=== PATIENT | female | born 1995 ===

== ENCOUNTER 2024-11-19 12:59 | Outpatient (AMB) | payer OTHER, SELFPAY ==
--- NOTE | 2024-11-19 13:09 | HO.SPINEOV ---
Intake Visit Reasons: LBP/herniated disc Intake Note: Ms. Galvan is here today c/o low back pain. MRI done @ [facility] (brought disc) Gate Supervisor Required: No Assessment & Plan Assessment & Plan (1) Lumbar disc herniation with radiculopathy: Code(s): M51.16 - Intervertebral disc disorders with radiculopathy, lumbar region Category: Medical Plan Dear colleague Thank you for referring Shakila Galvan to the office today with a chief complaint of severe right leg pain. HPI: This 29-year-old female has a history of a trauma 11 years ago where she landed on her spine. She suffering from severe low back pain radiating down both legs. Over time the symptoms improved but never went away completely. She always suffered from low back pain. Five months ago she suddenly developed severe radiating pain down the back of her leg into her calf. The pain is varying from 3 to 8/10. The pain is worse at the end of the day and sudden movements give her severe shooting pain down her leg. She has been taking anti-inflammatory drugs for all this time. She is currently in physical therapy. She still works as a life science teacher. Otherwise, she has limited her daily activities due to the pain. ts PMH: Healthy Medications: None other than anti-inflammatories Allergies: Latex Social history: Nonsmoker Physical Exam: Pleasant female in obvious agony. She sits in a deviated position towards the left side. She stands in a deviated position towards the left side. Straight leg raise is positive at 15 degrees with severe pain shooting down her right leg in an S1 distribution. Ankle reflexes absent on the right side. Sensory and motor exam are intact. Radiological Studies: MRI done at [facility] on 11/07/2024 shows lumbar degenerative disc disease L5-S1 with a large extruded disc herniation L5-S1 on the right side compressing the S1 nerve root Impression/Plan: This 29-year-old female is suffering from a classic S1 radiculopathy due to a large extruded disc herniation L5-S1 compressing the right S1 nerve root. Symptoms have been going on for 5 months without improvement. I recommended an L5-S1 microdiskectomy to decompress the right S1 nerve roots to address the pain. I quoted 85-90% success rate. She never had surgery before and therefore she wants to process my advice and will call my office if she wants to proceed. Thank you for allowing me to participate in your patients care. total time spent was 50 minutes in counseling ,coordination of plan, personal review of imaging, surgical decision making and subsequent plan Zion Onofre MD, PhD Spine Fellowship Trained Neurosurgeon Director, [facility] Coding Level of Care Code New Pt Level 4 (73361) Diagnoses Lumbar disc herniation with radiculopathy M51.16
== END 2024-11-19 13:35 | disposition home or self-care (01) ==
LOC: HO.HNS 12:59
PROVIDERS: PCP Nurse Practitioner Family; Visit Provider Neurological Surgery
DX: M51.16 Intervertebral disc disorders with radiculopathy, lumbar region (principal)
CPT/HCPCS: 99204

== ENCOUNTER → 2024-11-19 12:59 | Outpatient (BNVA) | payer OTHER, SELFPAY | PROVIDERS: PCP Nurse Practitioner Family; Visit Provider Neurological Surgery | DX: M51.16 Intervertebral disc disorders with radiculopathy, lumbar region (principal) | CPT/HCPCS: 99202 ==

== ENCOUNTER 2025-04-26 10:35 | Day surgery (SDC) | payer OTHER, SELFPAY ==
--- OUTSIDE RECORDS SUMMARY | 2025-03-31 13:12 | XMS_ITS | Clinical Summary ---
Author Organization [facility] Address [address] [place] [address] Care Team Providers Care Wild Life Photographer Name Role Phone Pcp, No Primary Care Provider Unavailabl e Allergies Active Allergy Reactions Criticality Noted Date Comments Latex Unknown/Patient and Family Unable to Define Medium 08/06/2018 Medications naproxen (NAPROSYN) 500 MG tablet Take 500 mg by mouth 2 (two) times a day with meals. Take with meals or food to reduce stomach upset. Active albuterol (PROVENTIL HFA; VENTOLIN HFA) 108 (90 Base) MCG/ACT inhaler Inhale 2 puffs 4 times daily (every 6 hours) as needed for wheezing. Active SUMAtriptan (IMITREX) 20 MG/ACT nasal sprayIndications :Migraine with aura and with status migrainosus, not intractable 1 spray (20 mg total) into each nostril every 2 (two) hours as needed for migraine. May repeat in 2 hours if unresolved. Do not exceed 200 mg in 24 hours. 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 04/25/2007 Overview (08/30/2018): Overview: DELAYED SPEECH ACQUISITION -IMPROVED WITH EI Asthma 04/21/2006 Family History Medical History Relation Name Comments Arthritis Father Hypertension Father Substance Abuse Maternal Grandfather Asthma Maternal Grandmother Anxiety disorder Mother Arthritis Mother Autoimmune disease Mother Depression Mother Hypertension Mother Melanoma Paternal Aunt Breast cancer Paternal Grandmother Lung cancer Paternal Grandmother Relation Name Status Comments Father Maternal Grandfather Maternal Grandmother Mother Paternal Aunt Paternal Grandmother Social History Tobacco Use Types Packs/Day Years Used Date Smoking Tobacco: Never Smokeless Tobacco: Never Alcohol Use Standard Drinks/Week Comments No 0 (1 standard drink = 0.6 oz pur e alcohol) AUDIT-C Answer Date Recorded Frequency of Alcohol Consumption Never 08/06/2018 Average Number of Drinks Not on file 018 Frequency of Binge Drinking Not on file 07/25 Comments No Sex and Gender Information Value Date Recorded Sex Assigned at Not on file Legal Sex Female 12:58 PM EST Gender Identity Not on file Sexual Orientation Not on file Last Filed Vital Signs Vital Sign Reading Time Taken Comments Blood Pressure 138/102 11/05/2018 3:45 PM EDT Pulse 123 11/05/2018 3:45 PM EDT Temperature 37.4 C (99.4 F) 08/28/2018 1:06 PM EST Respiratory Rate 16 08/28/2018 1:06 PM EST Oxygen Saturation 98% 11/05/2018 3:45 PM EDT Inhaled Oxygen Concentration - - Weight 81.2 kg (179 lb) 11/05/2018 3:45 PM EDT Height 172.7 cm (5' 8 ) 11/05/2018 3:45 PM EDT Body Mass Index 27.22 11/05/2018 3:45 PM EDT Plan of Treatment Health Maintenance Due Date Last Done Comments Hepatitis C Virus Screening 1995 HIV Screening 2009 DTaP/Tdap/Td Vaccines (1 - Tdap) 2015 Hepatitis B Vaccines (1 of 3 - 19+ 3-dose series) 2015 Pneumococcal Vaccine: Pediat jarred (0-5 Years) and At-Risk Patients (6 to 49 Years) (1 of 2 - PCV) 2015 Pap Smear (Ages 21-65) 2017 COVID-19 Vaccine ( - 2023-2 5 season) 2024 Influenza Vaccine 03/25/2025 HPV Vaccines Aged Out No longer eligi ble based on patient's age to complete this topic Insurance * Guarantor: Shakila Galvan Account Type Relation to Patient Date of Phone Billing Address Personal/Family Self 1995 [address] [address] [facility] [employer] Member Subscriber Plan / Payer (Ef fective 2008-Present) Name:Shakila Galvan Relation to Subscriber:Self Name:Shakila Galvan Payer ID:Not on file Type:Not on file Address: [address] - [facility] [place] Sub[place] Plan / Payer (Ef fective 2017-Present) Name:Shakila Galvan Relation to Subscriber:Child Name:JAEL LANDIN Date of :1971 (Home) Address: [address] [place] [address] Payer ID:[id number] (NAIC) Type:Not on file Address: [facility] [address] [place] [address] Care Teams Wild Life Photographer Relationship Specialty Start Date End Date Pcp, No PCP - General General Medicine 07/20/19
--- OUTSIDE RECORDS SUMMARY | 2025-03-31 13:12 | XMS_ITS ---
[facility] Care Team Organization Name Specialty Phone Email Start Date End Da te [facility] TEODORO PHAN Primary Care 07/02/2022 04/12/2024
--- OUTSIDE RECORDS SUMMARY | 2025-03-31 13:12 | XMS_ITS | Clinical Summary ---
Author Organization [address] Address [address] [place] [address] Phone Care Team Providers Care Search Analyst Name Role Phone Referring, No Primary Care Provider Unavailabl e Allergies Active Allergy Reactions Criticality Noted Date Comments Latex 05/02/2018 Medications ondansetron (ZOFRAN-ODT) 4 MG disintegrating tablet Take 1 tablet (4 mg total) by mouth every 8 (eight) hours as needed for Nausea.. 20 tablet 8 Active ondansetron (ZOFRAN) 4 MG tablet Take 1 tablet (4 mg total) by mouth every 6 (six) hours 12 tablet 9 Active Social History Tobacco Use Types Packs/Day Years Used Date Smoking Tobacco: Never Smokeless Tobacco: Never Alcohol Use Standard Drinks/Week Comments Yes 0 (1 standard drink = 0.6 oz pur e alcohol) rarely drinks Comments No Sex and Gender Information Value Date Recorded Sex Assigned at Not on file Legal Sex Female 8:57 AM EDT Gender Identity Not on file Sexual Orientation Not on file Last Filed Vital Signs Vital Sign Reading Time Taken Comments Blood Pressure 139/84 10/10/2018 9:30 PM EST Pulse 109 10/10/2018 7:08 PM EST Temperature 36.9 C (98.4 F) 10/10/2018 7:08 PM EST Respiratory Rate 16 10/10/2018 9:30 PM EST Oxygen Saturation 100% 10/10/2018 9:30 PM EST Inhaled Oxygen Concentration - - Weight 68 kg (150 lb) 10/10/2018 7:04 PM EST Height 172.7 cm (5' 8 ) 10/10/2018 7:04 PM EST Body Mass Index 22.81 10/10/2018 7:04 PM EST Plan of Treatment Health Maintenance Due Date Last Done Comments HIV screening 2009 Hepatitis C screening 2014 Cervical cancer screening 2017 Tetanus adult (Td q 10,TDAP once) 09/16/2017 09/16/2007, 10/12/2001, 03/06/1998, Additional history exists Covid-19 vaccine series ( - 2023- season) 2024 Influenza vaccine 04/25/2025 07/08/2016, , 06/06/2007, Additional history exists RSV Immunization (1 - 1-dose 75+ series) 2071 Meningococcal Vaccine Completed 04/09/2013, 008 Pneumococcal Vaccine (2 - 49 years) Aged Out No longer eligible based on patient's age to complete this topic Insurance [employer] Care Teams Search Analyst Relationship Specialty Start Date End Date Referring, No PCP - General 05/02/18
[2025-04-04 10:04] VITALS: BMI 20.5
[2025-04-04 12:01] VITALS: BP 114/72; PULSE 68; RESP 16; O2SAT 99
[2025-04-26] VITALS (11 sets, daily range): BP systolic 88–131; BP diastolic 40–79; PULSE 56–85; RESP 12–20; TEMP 36.4–36.9; O2SAT 95–100; BMI 21.2
--- NOTE | ~2025-04-26 | FL_ITS ---
EXAMINATION: XR FLUOROSCOPY WITH IMAGES CLINICAL INFORMATION: L5-S1 microdiscectomy COMPARISON: None available. TECHNIQUE: Fluoroscopy provided to: Dr. Onofre Fluoroscopy time: 55 seconds DAP: 0.6169 Gycm2 Images: 1 FINDINGS: 1 fluoroscopic spot image taken during L5-S1 microdiscectomy. Please refer to the full operative report for details. FL/FL guidance in OR IMPRESSION: Fluoroscopic guidance. Electronically signed by: Chacorta Prince MD 04/27/2025 08:49 AM EDT
[2025-04-26] MEDS: Lactated Ringers 1,000 ML 100 ML IVCONT (10:50)
[2025-04-26 10:53] LABS: UPreg QC Valid YES
--- NOTE | 2025-04-26 11:47 | P.HPSUR_ITS ---
Pre-Procedural Eval Section A - 24 Hr Update-Section A only Date of Service: 04/26/25 The patient is an INPATIENT: No Changes since office visit: No Cold of Flu in the past 2 weeks, No New Medical Problems, No Changes in Medication and No Patient answered all questions The patient has been examined within 24 hours of the surgical procedure. The History & Physical has been completed within 30 days and I have reviewed it.: No Section B - Complete if H&P > 30 days Chief Complaint: Intervertebral disc disorders with radiculopathy, Allergies: Allergies Allergy/AdvReac Type Severity Reaction Status Date / Time latex Allergy Intermediate Rash Verified 04/04/25 11:55 Review of Systems Sugical H&P ROS: Negative: Constitution, Cardiovascular, Respiratory, Neurological, Psychiatric, Hem-Onc, Allergic/Immunologic, Gastrointestinal, Genitourinary, Musculoskeletal, Integumentary, Endocrine and Eyes/Ears/Nose/T hroat Exam Surgical H&P Exam: Normal: HEENT, Normal: Heart, Normal: Lungs, Normal: Extremities, Normal: Abdomen, Normal: Skin and Normal: Neurological (awake,.alert,oriented x 3 ) Plan Diagnosis/Plan: Unchanged right L5-S1 microdiskectomy Time Spent With Patient Time: Total time managing care of this patient today _6___ minutes.
--- NOTE | 2025-04-26 11:47 | PM.DS ---
DS: Providers Provider Date of Service: 04/26/25 Date of discharge: 04/26/25 Primary care physician: Charity Ordaz NP Admitting clinician: Zion Onofre DS: Diagnosis Discharge Diagnosis (1) Lumbar disc herniation with radiculopathy: Status: Acute DS: Summary Time Attestation Discharge Coordination Time (in mins): 5 Quality: Safe Use of Opioids Does Pt have an Active Cancer Diagnosis on the Problem List?: No Quality: Stroke Does the patient have a stroke diagnosis?: No Physical Exam Vital Signs: Vital Signs: Last Vital Signs Temp 98.5 F 04/26/25 11:15 Pulse 84 04/26/25 11:15 Resp 20 04/26/25 11:15 BP 116/76 04/26/25 11:15 Pulse Ox 97 04/26/25 11:15 O2 Del Method Room Air 04/26/25 11:15 BMI result Body Mass Index 21.2 DS: Data Data Completed and Pending Labs on day of discharge: Laboratory Results - last 24 hr 04/26/25 10:47 Urine Test NEGATIVE Discharge Plan Discharge Patient Disposition: Home, Self-Care Referrals: Charity Ordaz NP [Primary Care Provider, Family Practice] - 1 Week Discharge Medications: New docusate sodium [Colace] 100 mg capsule 100 mg PO BID Qty: 20 0RF oxycodone 5 mg tablet 5 mg PO Q4H PRN (Reason: pain) Qty: 20 0RF Rx Instructions: Partial Fill upon patient request. Continued acetaminophen 500 mg Tablet 1,000 mg PO Q6H PRN (Reason: Pain) albuterol sulfate 90 mcg/actuation Hfa Aerosol Inhaler 2 puff INHALATION Q4-6H PRN (Reason: Shortness Of Breath Or Wheezing) vitamin K2 100 mcg Capsule 100 mcg PO DAILY cholecalciferol (vitamin D3) [Vitamin D3] 10 mcg (400 unit) Tablet 10 mcg PO DAILY Discharge Orders: Discharge Order (Routine); Ordered 04/26/25 Ordered By: Shayan Marinelli Diet: Advance to usual diet Activity on Discharge: As tolerated Activity Restrictions/Additional Instructions: After your spinal surgery we ask you to observe the following restrictions/guidelines: Activity: It is normal to feel some discomfort as you increase your activity, but that will improve with time. We ask you avoid heavy lifting or acitivities that cause pain. As a general rule, 8lbs is a safe limit for lifting right after surgery. Walk as much as you feel comfortable but not to exhaustion. You will feel extra tired the first few days after surgery. Stay well hydrated. It is OK to walk up and down stairs You may return to driving when you are off narcotics (such as vicodin, oxycodone, dilaudid, etc), and you are back to normal functional capacity. If you have any concerns please check with office before driving. Return to work is specific to each patient and each surgery, so please speak with your doctor/PA at first follow up. Please bring paperwork such as FMLA at that time if you need it filled out. Medications: For optimum pain control, it is best to start with a combination of 500 mg of Tylenol every 4 hours with 600 mg of Motrin every 8 hours, and use narcotics as needed in between for breakthrough pain. We will give you a short supply of narcotics after surgery (usually one weeks worth). If you need more please call the office but do not use more than prescribed. You will need to give our office 48 hours notice if you need narcotics refilled and we do not fill narcotics on weekends or evenings. If you are on a narcotic, it is a good idea to take a stool softener such as colace or senna to avoid constipation If you take blood thinner such as aspirin, Plavix, Coumadin, Effient, Eliquis etc for conditions such as Afib, DVT, Pulmonary embolus, coronary disease, stents etc please speak with your surgeon about specific details as to when you can resume these medications. Follow up: Please call the office, , after surgery to arrange a 3 week follow up for wound check. Wound Care: You may remove your dressing on the first day after surgery. ?You may ?leave open to air. Please do not remove the steri strips underneath. they will fall off on their own in one week. IT IS NORMAL FOR THE WOUND TO OOZE OR BE BLOODY FOR A FEW DAYS AFTER SURGERY. ?IF THIS HAPPENS JUST PLACE NEW DRESSING OVER IT TO AVOID STAINING CLOTHES. You may shower on post op day # 1 We ask that you do not let the water soak the wound. If it does get wet, just towel dry lightly. Please do not scrub your incision or place any type of chemical/ointment on the wound. No tub baths, pools or jacuzzis for one month. If you have any leaking or redness from your wound, or fevers, please call office Print Language: Albanian
--- NOTE | 2025-04-26 12:04 | HO.ANESPROP2 ---
Documented by User: Arminda Carr NP 04/19/25 13:47 HPI - Anesthesia Eval Consult details Narrative: 29yo F for L5-S1 MicroLumbar discectomy, 04/26/25 No recent illness No CP/SOB with walking and PT Asthma: well controlled albuterol only when sick, last used ~ 1 year ago Pt highly anxious - has never rec'd anesthesia before. Time spent reviewing DOS expectations, low risk for complications. Questions answered and reassured. PMFSH Active Problems Active Problems: All Active Problems Lumbar disc herniation with radiculopathy (Acute) Past Medical History Medical History (Updated 04/05/25 @ 14:32 by Prema Trujillo, HUNG) PTSD (post-traumatic stress disorder) History of nausea Hx: bad fall (~2014) Back pain Anxiety Migraines Asthma Irregular heart beat Family History Family history of problems with anesthesia: No Surgical History Surgical History (Updated 04/26/25 @ 11:20 by Yoly Vann RN) H/O discectomy No pertinent past surgical history History of Problems with Anesthesia: No Social History Social History (Updated 04/04/25 @ 10:07 by Prema Trujillo RN) Household Members Other:: mother Housing: House Are you a primary long term care social worker to a significant other at home: No Do you presently have visiting nurse or other home services: No Patient Tobacco Use Status: Never used Tobacco Use of substances other than those prescribed or required for medical reasons: No Have you been hit, kicked, punched, or otherwise hurt by someone within the past year? If so, by whom?: No Are you DNR?: No Advance Directives: No Advance Directives Information Provided: Yes Advance Directives on File: No Patient : No FDLMP: 04/04/2025 : No Poor oral hygiene: No Meds Allergies Allergy/AdvReac Type Severity Reaction Status Date / Time latex Allergy Intermediate Rash Verified 04/04/25 11:55 Home Medications ?Medication ?Instructions ?Recorded ?Confirmed ?Last Taken ?Type acetaminophen 500 mg tablet 1,000 mg PO Q6H PRN Pain 04/04/25 04/04/25 04/12/25 History albuterol sulfate 90 mcg/actuation 2 puff inhalation Q4-6H PRN 04/04/25 04/04/25 04/26/24 History aerosol inhaler Shortness Of Breath Or Wheezing cholecalciferol (vitamin D3) 10 10 mcg PO DAILY 04/26/25 04/26/25 03/28/25 History mcg (400 unit) tablet (Vitamin D3) vitamin K2 100 mcg capsule 100 mcg PO DAILY 04/26/25 04/26/25 03/28/25 History Exam Height,Weight and Vital Signs: Height 5 ft 8 in Weight 61.235 kg Last Vital Signs Pulse 68 04/04/25 12:01 Resp 16 04/04/25 12:01 BP 114/72 04/04/25 12:01 Pulse Ox 99 04/04/25 12:01 O2 Del Method Room Air 04/04/25 12:01 Airway Mallampati Class: I TM Dist: >3cm Neck ROM: Full Loose/Missing/Broken Teeth: No (permanent retainer lower front) Heart: RRR Lungs: CTAB Assessment and Plan Assessment Anesthesia Assessment: Anesthesia Plan Discussed and PAT Visit Final Anesthetic Review Family History of Problems with Anesthesia: No History of Problems with Anesthesia: No Documented by User: Harleen Soria DO 04/26/25 12:06 [facility] Past Medical History Medical History (Updated 04/05/25 @ 14:32 by Prema Trujillo, HUNG) PTSD (post-traumatic stress disorder) History of nausea Hx: bad fall (~2014) Back pain Anxiety Migraines Asthma Irregular heart beat Family History Family history of problems with anesthesia: No Surgical History Surgical History (Updated 04/26/25 @ 11:20 by Yoly Vann RN) H/O discectomy No pertinent past surgical history History of Problems with Anesthesia: No Social History Social History (Updated 04/04/25 @ 10:07 by Prema Trujillo, HUNG) Household Members Other:: mother Housing: House Are you a primary long term care social worker to a significant other at home: No Do you presently have visiting nurse or other home services: No Patient Tobacco Use Status: Never used Tobacco Use of substances other than those prescribed or required for medical reasons: No Have you been hit, kicked, punched, or otherwise hurt by someone within the past year? If so, by whom?: No Are you DNR?: No Advance Directives: No Advance Directives Information Provided: Yes Advance Directives on File: No Patient : No FDLMP: 04/04/2025 : No Poor oral hygiene: No Meds Allergies Allergy/AdvReac Type Severity Reaction Status Date / Time latex Allergy Intermediate Rash Verified 04/04/25 11:55 Home Medications ?Medication ?Instructions ?Recorded ?Confirmed ?Last Taken ?Type acetaminophen 500 mg tablet 1,000 mg PO Q6H PRN Pain 04/04/25 04/04/25 04/12/25 History albuterol sulfate 90 mcg/actuation 2 puff inhalation Q4-6H PRN 04/04/25 04/04/25 04/26/24 History aerosol inhaler Shortness Of Breath Or Wheezing cholecalciferol (vitamin D3) 10 10 mcg PO DAILY 04/26/25 04/26/25 03/28/25 History mcg (400 unit) tablet (Vitamin D3) vitamin K2 100 mcg capsule 100 mcg PO DAILY 04/26/25 04/26/25 03/28/25 History Exam Exam Date and Time: 04/26/25 1200 Height,Weight and Vital Signs: Height 5 ft 8 in Weight 61.235 kg Last Vital Signs Pulse 68 04/04/25 12:01 Resp 16 04/04/25 12:01 BP 114/72 04/04/25 12:01 Pulse Ox 99 04/04/25 12:01 O2 Del Method Room Air 04/04/25 12:01 Vital Signs Pulse Rate 68 04/04/25 12:01 Respiratory Rate 16 04/04/25 12:01 Blood Pressure 114/72 04/04/25 12:01 Pulse Oximetry 99 04/04/25 12:01 Oxygen Delivery Method Room Air 04/04/25 12:01 Temperature 98.5 F 04/26/25 11:15 Pulse Rate 84 04/26/25 11:15 Respiratory Rate 20 04/26/25 11:15 Blood Pressure 116/76 04/26/25 11:15 Pulse Oximetry 97 04/26/25 11:15 Oxygen Delivery Method Room Air 04/26/25 11:15 Airway Mallampati Class: I TM Dist: >3cm Neck ROM: Full Loose/Missing/Broken Teeth: No (permanent retainer lower front) Heart: S1S2 Assessment and Plan Assessment Anesthesia Assessment: Anesthesia Plan Discussed and Chart Reviewed Final Anesthetic Review Family History of Problems with Anesthesia: No History of Problems with Anesthesia: No NPO: Yes ASA Class: II Final Preanesthetic Review: No Changes in Pt Med Stat, Meds/Allgs Chart Reviewed, Consent Obtained/Reviewed and Anes Risks/Benef Reviewed Patient Risk: Low Procedure Risk: Low Anesthetic Plan Anesthetic Plan: GA and Agree w/ Assess. and Plan Disposition: Standard PACU
--- NOTE | 2025-04-26 13:24 | W.PM.OPN ---
Operative Note Operative Note Date of Service: 04/26/25 Narrative: Preoperative diagnosis: Right S1 radiculopathy due to disc herniation Postoperative diagnosis: Same Procedure: Right L5-S1 microdiskectomy with microscope Surgeon: Zion Onofre MD, PhD Platform Worker: mayra Burnett This 29-year-old female is suffering from a right S1 radiculopathy due to a large disc herniation L5-S1 compressing the right S1 nerve root. The patient was offered a lumbar microdiskectomy to decompress the nerve root. The procedure complications were explained. The patient was consented. The patient was brought to the operating room and endotracheally intubated. The patient was turned in a prone position on the José Luis frame. Prepping and draping was done followed by time-out. A mid lumbar incision was made followed by release of the paravertebral muscles on the right side to expose the L5-S1 interspace. An intraoperative x-rays obtained to confirm the correct level. The microscope was brought in. A L5 laminotomy was done followed by opening of the flavum ligament. The S1 nerve root was identified and retracted medially to expose the L5-S1 disc space. I could palpate a disc herniation medial from the S1 nerve root, which I carefully removed with a pituitary. Large fragments of disc herniation were removed medial from the S1 nerve root. The disc space was inspected and any residual disc fragments were removed. This resulted in an excellent decompression of the S1 nerve root. Hemostasis was done. The microscope was removed. Marcaine was injected intramuscularly.The incision was closed in two layers. Steri-Strips used to approximate the incision. An op-site were taken there was used to cover the incision. All sponge and needle counts were correct. Patient was extubated and transported in stable condition to recovery room. this procedure was done with the aid of a physician certified pharmacist assistant who performed the initial exposure until the microscope was brought in and performed the closure of the incision. Anesthesia: General Blood loss: 10 mL Complications: None Specimen: None Surgical time: 45 minutes Disposition: Discharge home
== END 2025-04-26 16:05 | disposition home or self-care (01) ==
PROVIDERS: Nurse Practitioner; PCP Nurse Practitioner Family; Visit Provider Neurological Surgery
PROC: (CPT 63030; principal; 2025-04-26 13:10)
DX: M51.16 Intervertebral disc disorders with radiculopathy, lumbar region (principal); M54.50 Low back pain, unspecified; Z87.828 Personal history of other (healed) physical injury and trauma; Z91.81 History of falling; J45.909 Unspecified asthma, uncomplicated; Z79.1 Long term (current) use of non-steroidal anti-inflammatories (NSAID); Z79.899 Other long term (current) drug therapy; Z91.040 Latex allergy status
CPT/HCPCS: 63030; 81025; J0131; J0690; J1100; J1171; J1630; J1885; J2003; J2250; J2405; J2704; J3010

== ENCOUNTER → 2025-04-26 10:35 | Outpatient (BNV) | payer OTHER, SELFPAY | PROVIDERS: PCP Nurse Practitioner Family; Visit Provider Neurological Surgery | DX: M51.16 Intervertebral disc disorders with radiculopathy, lumbar region (principal) | CPT/HCPCS: 63030; 99499 ==

== ENCOUNTER 2025-05-17 13:26 | Outpatient (AMB) | payer OTHER, SELFPAY ==
--- OUTSIDE RECORDS SUMMARY | 2024-10-29 05:10 | XMS_ITS ---
Author Organization [facility] Address [address] [place] [address] Care Team Providers Care Starch And Prosize Mixer Name Role Phone MIKE REAVES Unavailable [phone] REASON FOR VISIT ULTRA -PELVIC PAIN Encounters Encounter Location Date Provider Diagnosis [facility] [address] [place] [address] 10/29/2024 MIKE REAVES Plan Of Treatment Next Appt Details Provider Name:MIKE Hinojosa, 06/17/2025 10:30:00 AM, [address] [place] [address], [address], [place], [address], Progress Notes * OZ ESPINOSAOB: [birth year] (29 yo F)Acc No.[id number]:10/29/2024 PROGRESS NOTES Patient: LENA NGO Provider: Fabián REAVES MD :1995 A ge:29 Y S ex:Female Date:10/29/2024 Address:[address] [place], [place] [id number] Subjective: * Chief Complaints: * 1 . ULTRA -PELVIC PAIN. * Medical History: Objective: * Vitals: Assessment: Plan: * Treatment: * Images: Billing Information: * Visit Code: * Procedure Codes: * Electronic signature of MIKE REAVES MD on 05/17/2025 at 04:30 PM EDT Sign off status: Pending * Provider: Fabián REAVES MD Date: 0 10/29/2024 Generated for Printi ng/Fadusting/eTransmitting on: 0 05/17/2025 04:30 PM EDT
--- NOTE | 2025-05-17 13:28 | HO.SPINEOV ---
Intake Visit Reasons: 1st post op Intake Note: Ms. Galvan is here today for her 1st post op. Pin Ticket Machine Operator Required: No Allergies latex Allergy (Intermediate, Verified 05/17/25 13:28) Rash Assessment & Plan Assessment & Plan (1) S/P lumbar microdiscectomy: Code(s): Z98.890 - Other specified postprocedural states Category: Surgical Plan Procedure: Right L5-S1 microdiskectomy Shakila is a pleasant 29-year-old female comes in today for 1st postoperative visit after having a right-sided L5-S1 microdiskectomy completed by Dr. Onofre a few weeks ago. She reports that overall she has done very well since her surgery. For about 1 week after surgery she had 0 pain. Unfortunately about a week and a half out from her surgery she began experiencing a low-grade recurrence of a similar shooting pain down her right lower extremity. She states it is about a 4/10, and does occasionally flare-up throughout the day. This is a much more manageable pain, however she is very concerned that it returned. We discussed how this is likely related to the postoperative healing course, and she may be suffering from some inflammation after surgery. It will likely resolve on its own as time progresses. No new neurological deficits. The patient ambulates well and rises from a seated position without difficulty. Her incision site was still covered with Steri-Strips, therefore I removed them. Her incision is well approximated, and well healing. I would like to follow up with Shakila again in 6 weeks for his 2nd postoperative visit. Amos Onofre MD,PhD [facility] Coding Level of Care Code Global (67135) Diagnoses S/P lumbar microdiscectomy Z98.890
--- OUTSIDE RECORDS SUMMARY | 2025-05-17 16:30 | XMS_ITS | Encounter Summary ---
Author Organization [facility] Address [address] [place] [address] Care Team Providers Care Primary Special Education Teacher Name Role Phone Marilynn Hodges MD Primary Care Provider [phone] Reason for Visit * Reason Onset Date Comments Sore Throat 11/19/2019 Encounter Details Date Type Department Care Team Description 11/19/2019 Telephone Adult Medicine - [place] [address] [place] [address] Marilynn Hodges MD [address] [place] [address] Sore Throat Social History Tobacco Use Types Packs/Day Years Used Date Smoking Tobacco: Never Smokeless Tobacco: Never Comments:MOM OUTSIDE Alcohol Use Standard Drinks/Week Comments No 0 (1 standard drink = 0.6 oz pur e alcohol) Sex Assigned at Date Recorded Not on file Job Start Date Occupation Industry Not on file Not on file Not on file documented as of this encounter Miscellaneous Notes * Telephone Encounter - Inessa Crowder L.P.N. - 11/19/2019 9:35 AM EDT Pt has a sore throat ,with large tonsils,white patches ,appt in ideal ,booked, * Telephone Encounter - Divina Cruz - 11/19/2019 8:40 AM EDT Symptoms patient is having: Mom calling (vr) stating child has sore throat with white spots, statesits very red and swollen. Sore throat for 5 days, and white spots appeared yesterday. Mom is tryingto not have child come in she has fibromyalgia and states she has a bad immune system and does not want her to have to come in if she does not have to For ALL patients calling to schedule any appointment (routine, sick visit, follow up, consult, etc.) in the outpatient setting please ask the following questions. ??? Do you have fever, cough or shortness of breath? NO ??? Have you had close contact with someone with Coronavirus in the last 14 days? NO ??? Have you traveled abroad? NO ??? Have you been to [place] or in contact with anyone who has recently been in [place]? NO If YES to either, send the call to triage and do not book If pain or injury related was it due to an accident at work or from a motor vehicle accident? If yes, gather 3rd green party insurance information Date of accident/Injury: How long has patient had these symptoms?: PCP: Harleen Hodges Payor: JABIER/Kianna FFS / Plan: HMO $30 [employer] [id number] / Product Type: HMO PRE-PAID documented in this encounter Plan of Treatment Not on file documented as of this encounter Visit Diagnoses Not on filedocumented in this encounter Care Teams Primary Special Education Teacher Relationship Specialty Start Date End Date Marilynn Hodges MD [address] [place] [address] PCP - General Internal Medicine 12/28/14 documented as of this encounter
--- OUTSIDE RECORDS SUMMARY | 2025-05-17 16:30 | XMS_ITS | Encounter Summary ---
Author Organization [facility] Address [address] [place] [address] Care Team Providers Care Hand Dry Cleaner Name Role Phone Rubina Mosquera MD Primary Care Provider Roxi Gonzalez MD Primary Care Prov ider Mary Baeza MD Primary Care Provider Glo Hodges Ch MD Primary Care Provider [phone] Reason for Visit * Reason Comments medication problems Encounter Details Date Type Department Care Team Description 07/28/2003 Telephone [facility] - [address] [phone] Haroldo Brewster MD medication problems Social History Tobacco Use Types Packs/Day Years Used Date Smoking Tobacco: Never Assessed Sex Assigned at Date Recorded Not on file Job Start Date Occupation Industry Not on file Not on file Not on file documented as of this encounter Miscellaneous Notes * Telephone Encounter - 07/28/2003 4:00 PM ESTmsg to Miguel jimenez * Telephone Encounter - 07/28/2003 8:51 AM ESTchart requested * Telephone Encounter - 07/28/2003 8:42 AM ESTCALL RECEIVED. Contact: [phone] mom would like to speak with dr brewster about putting child on singular tablets for her asthma. documented in this encounter Plan of Treatment Not on file documented as of this encounter Visit Diagnoses Not on filedocumented in this encounter Care Teams Hand Dry Cleaner Relationship Specialty Start Date End Date Rubina Mosquera MD PCP - General 12/17/1997 09/24/12 Roxi Radford MD [address] [place] [address] PCP - General Pediatrics 09/25/12 08/02/14 Mary Baeza MD [address] [place] [address] PCP - General Pediatrics 08/03/14 12/27/14 Marilynn Hodges MD [address] [place] [address] PCP - General Internal Medicine 12/28/14 documented as of this encounter
--- OUTSIDE RECORDS SUMMARY | 2025-05-17 16:30 | XMS_ITS | Encounter Summary ---
Author Organization [facility] Address [address] [place] [address] Care Team Providers Care Semiconductor Manufacturing Technician Name Role Phone Marilynn Hodges MD Primary Care Provider [phone] Encounter Details Date Type Department Care Team Description 01/30/2018 Sales Merchandising Specialist Report Medical Records [address] [place], [place] [id number] [place] [address] Social History Tobacco Use Types Packs/Day Years Used Date Smoking Tobacco: Never Smokeless Tobacco: Never Comments:MOM OUTSIDE Alcohol Use Standard Drinks/Week Comments No 0 (1 standard drink = 0.6 oz pur e alcohol) Sex Assigned at Date Recorded Not on file Job Start Date Occupation Industry Not on file Not on file Not on file documented as of this encounter Plan of Treatment Not on file documented as of this encounter Visit Diagnoses Not on filedocumented in this encounter Care Teams Semiconductor Manufacturing Technician Relationship Specialty Start Date End Date Marilynn Hodges MD [address] [place] [address] PCP - General Internal Medicine 12/28/14 documented as of this encounter
--- OUTSIDE RECORDS SUMMARY | 2025-05-17 16:30 | XMS_ITS | Encounter Summary ---
Author Organization [facility] Address [address] [place] [address] Care Team Providers Care Real Estate Photographer Name Role Phone Marilynn Hodges MD Primary Care Provider [phone] Encounter Details Date Type Department Care Team Description 02/01/2015 Hospital Medical Records [address] [place], [place] [id number] [place] [address] Social History Tobacco Use Types Packs/Day Years [...] on filedocumented in this encounter Care Teams Real Estate Photographer Relationship Specialty Start Date End Date Marilynn Hodges MD [address] [place] [address] PCP - General Internal Medicine 12/28/14 documented as of this encounter
--- OUTSIDE RECORDS SUMMARY | 2025-05-17 16:30 | XMS_ITS | Encounter Summary ---
Author Organization [facility] Address [address] [place] [address] Care Team Providers Care Personnel Assistant Name Role Phone Marilynn Hodges MD Primary Care Provider [phone] Reason for Visit * Reason Onset Date Comments Brush Painter Feedback 06/22/2021 CORTEZ SERNA Encounter Details Date Type Department Care Team Description 06/22/2021 Telephone Adult Medicine - [place] [address] [place] [address] Marilynn Hodges MD [address] [place] [address] Brush Painter Feedback (CORTEZ SERNA) Social History Tobacco Use Types Packs/Day Years Used Date Smoking Tobacco: Never Smokeless Tobacco: Never Comments:MOM OUTSIDE Alcohol Use Standard Drinks/Week Comments No 0 (1 standard drink = 0.6 oz pur e alcohol) Sex Assigned at Date Recorded Not on file Job Start Date Occupation Industry Not on file Not on file Not on file COVID-19 Exposure Response Date Recorded In the last month, have you been in contact with someone who was confirmed or suspected to have Coronavirus / COVID-19? No / Unsure 06/18/2021 1:03 PM EDT documented as of this encounter Miscellaneous Notes * Telephone Encounter - Arielle Gómez - 06/22/2021 9:37 AM EDT [facility] Specialty Referral Status [ Save Response to Batch ] Request: [id number] [facility] Trace #: [id number] Patient: SHAKILA ESPINOSA Subscriber: JAEL LANDIN Submitter : SCOT GAR Submitter Type: Provider : 1995 Referral (#[id number]) Specialty Care Review Type: Initial Certification Status : Certified in total Service Type : Medical Care Place Of Service : Office Visits : 6 Service Date : 06/21/2021-06/21/2022 Service Providers Provider Name ID Provider Type Specialty documented in this encounter Plan of Treatment Not on file documented as of this encounter Visit Diagnoses Not on filedocumented in this encounter Care Teams Personnel Assistant Relationship Specialty Start Date End Date Marilynn Hodges MD [address] [place] [address] PCP - General Internal Medicine 12/28/14 documented as of this encounter
--- OUTSIDE RECORDS SUMMARY | 2025-05-17 16:30 | XMS_ITS | Encounter Summary ---
Author Organization [facility] Address [address] [place] [address] Care Team Providers Care Room Cleaner Name Role Phone Marilynn Hodges MD Primary Care Provider [phone] Reason for Referral * EXTERNAL (Routine) - Authorized/Booked Specialty Diagnoses / Procedures Referred By Ld suh Referred To Contact Podiatry Procedures REFERRAL TO PODIATRY (OUT OF NETWORK) Marilynn Hodges MD [address] [place] [address] Farhad Mendez [address] [place] [address] [address] [place] [address] Referral ID Status Reason Start Date Expiration Date V isits Requested Visits Authorized [id number] Authorized/ Booked 02/27/2021 06/09/2021 6 6 Reason for Visit * Reason Onset Date Comments Life Insurance Agent Feedback 02/27/2021 Dr. Farhad freed Encounter Details Date Type Department Care Team Description 02/27/2021 Telephone Adult Medicine - [place] [address] [place], [place] [phone] Marilynn Hodges MD [address] [place], [place] Life Insurance Agent Feedback (Dr. Farhad Barahona) Social History Tobacco Use Types Packs/Day Years [...] have Coronavirus / COVID-19? No / Unsure 02/21/2021 4:15 PM EDT documented as of this encounter Miscellaneous Notes * Telephone Encounter - Hi Mikayla - 02/27/2021 2:45 PM EDT Please review this patients new referral request. The referral has been pended. Please complete thefollowing: If approved> sign order If denied>please give instructions and route to your practice nursing pool. Practice nurse should inform referrals and the patient if denied. * Telephone Encounter - Karen Carrillo - 02/27/2021 2:38 PM EDT PLEASE SEE RECENT REF TO POD, PATIENT DOES NOT WANT TO GO TO THAT MD ASKING FOR A NEW ONE What insurance does the patient have today? HNE AND BC Effective 05/25/09: BCBS will not retro referral requests over 90 days. If request is for this please instruct patient to call the 800# on their insurance card to appeal. Do not submit a request. Referrals cannot be processed if the insurance is not accurate. If the insurance listed above in red is NO BILLING INFORMATION FOUND FOR THIS ENCOUTNER The patients correct insurance must be obtained and registered in [facility] or their referral can not be processed. Is this a retro request? NO. If yes for what date of service do you need the retro referral? N/A Who is calling to request this referral? The pt If the caller is not the patient, what is their name? N/A Ask the patient WHO referred them to this specialty: Patient saw Dr. Cid at [facility] for the problem and was told if symptoms did not resolve or worsen they would refer them to this specialty FIRST and LAST NAME of SPECIALIST PATIENT is seeing: Dr. Farhad Barahona What specialty is this? POD DIAGNOSIS Patient is being seen for (Not a body part or a procedure): ingrown toenail Have you seen this SPECIALIST for this PROBLEM/DX before?NO If YES, when:- Have you checked REVIEW or the APPT DESK to see if this referral has already been done or has visits left? YES Is this visit:Initial Visit Address of Specialist:[address] [place] [address] Phone # of Specialist:[phone] Fax #: (if applicable):- Does patient have an appointment scheduled?: NO Date of appointment- (including a retro-request): TBD Is this appointment related to: Not MVA, WC or Surgery related documented in this encounter Plan of Treatment Not on file documented as of this encounter Visit Diagnoses Not on filedocumented in this encounter Care Teams Room Cleaner Relationship Specialty Start Date End Date Marilynn Hodges MD [address] [place] [address] PCP - General Internal Medicine 12/28/14 documented as of this encounter
--- OUTSIDE RECORDS SUMMARY | 2025-05-17 16:30 | XMS_ITS | Clinical Summary ---
Author Organization [address] Address [address] [place] [address] Phone Care Team Providers Care Relief Map Modeler Name Role Phone Referring, No Primary Care [...] 09/16/2017 09/16/2007, 10/12/2001, 03/06/1998, Additional history exists Influenza vaccine 03/25/2025 07/08/2016, , 06/06/2007, Additional history exists Covid-19 vaccine series ( - 2023- season) 2025 RSV Immunization (1 - 1-dose 75+ series) 2071 Meningococcal Vaccine Completed 04/09/2013, 008 Meningococcal B Vaccine Aged Out No l onger eligible based on patient's age to complete this topic Pneumococcal Vaccine (2 - 49 years) Aged Out No longer eligible based on patient's age to complete this topic Insurance [employer] BCBS [facility] Care Teams Relief Map Modeler Relationship Specialty Start Date End Date Referring, No PCP - General 05/02/18
--- OUTSIDE RECORDS SUMMARY | 2025-05-17 16:30 | XMS_ITS | Encounter Summary ---
Author Organization [facility] Address [address] [place] [address] Care Team Providers Care Swing Saw Operator Name Role Phone Marilynn Hodges MD Primary Care Provider +1 -[phone] Reason for Visit * Reason Onset Date Comments TEST RESULTS 09/15/2020 REFERRAL 09/15/2020 Encounter Details Date Type Department Care Team Description 09/15/2020 Telephone Adult Medicine - [address] [address] Ivelisse Hector PA-C TEST RESULTS; REFERRAL Social History Tobacco Use Types Packs/Day Years [...] have Coronavirus / COVID-19? No / Unsure 09/13/2020 10:14 AM EST documented as of this encounter Miscellaneous Notes * Telephone Encounter - Inessa Crowder L.P.N. - 09/15/2020 12:26 PM EST Message given to pt ,she states ,she was supposed to get biopsy but in never occurred because the timing was off and rash would disappear before they could do * Telephone Encounter - Divina Anthony - 09/15/2020 12:02 PM EST Patient returning call please advise. * Telephone Encounter - Ivelisse Hector PA-C - 09/15/2020 8:21 AM EST Tried to call patient to discuss test results. Did not answer, left message on unidentified voicemail to call the office back and/or check their MyChart. If the pt calls back, please transfer to floor nurse or tirage Please advise her that her vitamin D level was mildly low, not enough to be contributing to her symptoms. I recommend an [id number] supplement (1000 IUs), this may help with her energy level toa degree. Her x-ray shows a mild curvature in her low back but no other concerning changes. Please advise her that I went through her chart I did see that she saw [facility] dermatology in 2018, she had been referred to them by [facility] rheumatology. It seemed like they are discussing a referral [facility] rheumatologic Derm. Please find out if she had seen a specialist or if she remembers ever getting a biopsy of her rash. Please have me know what she says. Thank you documented in this encounter Plan of Treatment Not on file documented as of this encounter Visit Diagnoses Not on filedocumented in this encounter Care Teams Swing Saw Operator Relationship Specialty Start Date End Date Marilynn Hodges MD [facility] [place] [place] [address] PCP - General Internal Medicine 12/28/14 documented as of this encounter
--- OUTSIDE RECORDS SUMMARY | 2025-05-17 16:30 | XMS_ITS | Encounter Summary ---
Author Organization [facility] Address [address] [place] [address] Care Team Providers Care Field Service Rep Name Role Phone Marilynn Hodges MD Primary Care Provider [phone] [phone] Encounter Details Date Type Department Care Team Description 09/30/2016 Release of Information Medical Records [address] [place] [address] Abstract, Provider Social History Tobacco Use Types Packs/Day Years [...] on filedocumented in this encounter Care Teams Field Service Rep Relationship Specialty Start Date End Date Marilynn Hodges MD [address] [place] [address] PCP - General Internal Medicine 12/28/14 documented as of this encounter
--- OUTSIDE RECORDS SUMMARY | 2025-05-17 16:30 | XMS_ITS | Encounter Summary ---
Author Organization [facility] Address [address] [place] [address] Care Team Providers Care Road Inspector Name Role Phone Marilynn Hodges MD Primary Care Provider [phone] [phone] Reason for Visit * Reason Onset Date Comments immunizations 05/15/2016 printed out Encounter Details Date Type Department Care Team Description 05/15/2016 Telephone Adult Medicine - [place] [address] [place] [address] Marilynn Hodges MD [address] [place] [address] immunizations (printed out) Social History Tobacco Use Types Packs/Day Years [...] encounter Miscellaneous Notes * Telephone Encounter - Radha Stevens M.A. - 05/15/2016 2:05 PM EDT Attempted to call # listed in message. Male on vm. Left # to call back. Imms in ppu * Telephone Encounter - Cristela Martinez - 05/15/2016 1:38 PM EDT Letter requested for: Would like a print out of her Immunizations . Reason for letter: Immunizations Specific notations needed in body of letter: NA Date needed for completion: SHILOH When completed: Will bead picker-call when completed: . Her mother will be picking it up. documented in this encounter Plan of Treatment Not on file documented as of this encounter Visit Diagnoses Not on filedocumented in this encounter Care Teams Road Inspector Relationship Specialty Start Date End Date Marilynn Hodges MD [address] [place] [address] PCP - General Internal Medicine 12/28/14 documented as of this encounter
--- OUTSIDE RECORDS SUMMARY | 2025-05-17 16:30 | XMS_ITS | Encounter Summary ---
Author Organization [facility] Address [address] [place] [address] Care Team Providers Care Car Rental Manager Name Role Phone Marilynn Hodges MD Primary Care Provider [phone] [phone] Encounter Details Date Type Department Care Team Description 06/25/2018 Cardiology Clinical Consultant Report Medical Records [address] [place], [place] [address] [place] [address] Social History Tobacco Use Types Packs/Day Years [...] on filedocumented in this encounter Care Teams Car Rental Manager Relationship Specialty Start Date End Date Marilynn Hodges MD [address] [place] [address] PCP - General Internal Medicine 12/28/14 documented as of this encounter
--- OUTSIDE RECORDS SUMMARY | 2025-05-17 16:30 | XMS_ITS | Encounter Summary ---
Author Organization [facility] Address [address] [place] [address] Care Team Providers Care Lining Maker Name Role Phone Marilynn Hodges MD Primary Care Provider [phone] [phone] Reason for Visit * Reason Onset Date Comments Orders Call 11/14/2021 Encounter Details Date Type Department Care Team Description 11/14/2021 Telephone Adult Medicine - [place] [address] [place] [address] Leeann Fernandes PA-C [address] [place], [place] Orders Call Social History Tobacco Use Types Packs/Day Years Used Date Smoking Tobacco: Never Smokeless Tobacco: Never Comments:MOM OUTSIDE Alcohol Use Standard Drinks/Week Comments No 0 (1 standard drink = 0.6 oz pur e alcohol) Sex Assigned at Date Recorded Not on file Job Start Date Occupation Industry Not on file Not on file Not on file COVID-19 Exposure Response Date Recorded In the last 10 days, have yo u been in contact with someone who was confirmed or suspected to have Coronavirus/COVID-19? No / Unsure 11/13/2021 10:10 AM EDT documented as of this encounter Miscellaneous Notes * Telephone Encounter - Leeann Fernandes PA-C - 11/14/2021 9:55 AM EDT Fixed. * Telephone Encounter - Joyce Brown - 11/14/2021 9:47 AM EDT An order was placed for the pt to have an u/s CHG US LMTD JOINT/OTH NONVASC XTR STRUX R-T W/IMG - for a [place] [id number]. Thank you. documented in this encounter Plan of Treatment Not on file documented as of this encounter Visit Diagnoses Not on filedocumented in this encounter Care Teams Lining Maker Relationship Specialty Start Date End Date Marilynn Hodges MD [address] [place] [address] PCP - General Internal Medicine 12/28/14 documented as of this encounter
--- OUTSIDE RECORDS SUMMARY | 2025-05-17 16:30 | XMS_ITS | Encounter Summary ---
Author Organization [facility] Address [address] [place] [address] Care Team Providers Care Health Advisor Name Role Phone Rubina Mosquera MD Primary Care Provider Unavaila Roxi Moseley MD Primary Care Prov ider Mary Baeza MD Primary Care Provider Gol Hodges Ch MD Primary Care Provider [phone] [phone] Encounter Details Date Type Department Care Team Description 10/11/2011 Carton Machine Operator Report Medical Records [address] [place] [address] Davonte Hallman MD Social History Tobacco Use Types Packs/Day Years Used Date Smoking Tobacco: Passive Smo ke Exposure - Never Smoker Comments:MOM OUTSIDE Alcohol Use Standard Drinks/Week Comments [...] on filedocumented in this encounter Care Teams Health Advisor Relationship Specialty Start Date End Date Rubina Mosquera MD PCP - General 12/17/1997 09/24/12 Roxi Radford MD [address] [place] [address] PCP - General Pediatrics 09/25/12 08/02/14 Mary Baeza MD [address] [place] [address] PCP - General Pediatrics 08/03/14 12/27/14 Marilynn Hodges MD [address] [place] [address] PCP - General Internal Medicine 12/28/14 documented as of this encounter
--- OUTSIDE RECORDS SUMMARY | 2025-05-17 16:30 | XMS_ITS | Encounter Summary ---
Author Organization [facility] Address [address] [place] [address] Care Team Providers Care Casino Cage Manager Name Role Phone Marilynn Hodges MD Primary Care Provider [phone] [phone] Reason for Referral * Non JOSÉ LUIS (Routine) - Authorized/Booked Specialty Diagnoses / Procedures Referred By Contdanae t Referred To Contact Dermatology Procedures REFERRAL TO DERMATOLOGY Marilynn Hodges MD [address] [place], [place] Tyrell Pathak MD [address] [place] [address] Referral ID Status Reason Start Date Expiration Date V isits Requested Visits Authorized [id number] Authorized/ Booked 04/11/2020 04/11/2021 12 12 Reason for Visit * Reason Onset Date Comments Director Field Services Feedback 04/11/2020 Derm Encounter Details Date Type Department Care Team Description 04/11/2020 Telephone Dermatology - [place] [address] [place] [address] Marilynn Hodges MD [address] [place], [place] Director Field Services Feedback (Derm) Social History Tobacco Use Types Packs/Day Years [...] encounter Miscellaneous Notes * Telephone Encounter - Marilynn Hodges MD - 04/11/2020 2:16 PM EDT Order signed * Telephone Encounter - Hi Degroot - 04/11/2020 1:23 PM EDT Please review this patients new referral request. The referral has been pended. Please complete thefollowing: If approved> sign order If denied>please give instructions and route to your practice nursing pool. Practice nurse should inform referrals and the patient if denied. * Telephone Encounter - Gladis Levy - 04/11/2020 1:12 PM EDT Request for a referral to a [place] Specialist for a patient with a [place] PCP. If patient does NOT have a [place] PCP they must obtain a referral from their PCP before being seen-do not submit request to Referrals department-contact patient. Specialty patient is being referred to: dermatology Name of Specialist patient is seeing: Reason/diagnosis for visit: mole check, has a mole that is irregular and concerning Date of appoinment: If retro, date referral needs to start: Harleen Hodges Payor: [employer] FFS / Plan: HMO $30 HUDSON [id number] / Product Type: HMO PRE-PAID documented in this encounter Plan of Treatment Not on file documented as of this encounter Visit Diagnoses Not on filedocumented in this encounter Care Teams Casino Cage Manager Relationship Specialty Start Date End Date Marilynn Hodges MD [facility] [place] [address] PCP - General Internal Medicine 12/28/14 documented as of this encounter
--- OUTSIDE RECORDS SUMMARY | 2025-05-17 16:30 | XMS_ITS | Encounter Summary ---
Author Organization [facility] Address [address] [place] [address] Care Team Providers Care Ems Driver Name Role Phone Rubina Mosquera MD Primary Care Provider Roxi Gonzalez MD Primary Care Prov ider Mary Baeza MD Primary Care Provider Glo Hodges Ch MD Primary Care Provider [phone] [phone] Encounter Details Date Type Department Care Team Description 09/05/2011 Refill OBGYN - [place] [address] [place] [address] Magy Jimenez, BHAVYA [address] [place] [address] Social History Tobacco Use Types Packs/Day Years [...] on filedocumented in this encounter Care Teams Ems Driver Relationship Specialty Start Date End Date Rubina Mosquera MD PCP - General 12/17/1997 09/24/12 Roxi Radford MD [address] [place] [address] PCP - General Pediatrics 09/25/12 08/02/14 Mary Baeza MD [address] [place] [address] PCP - General Pediatrics 08/03/14 12/27/14 Marilynn Hodges MD [address] [place] [address] PCP - General Internal Medicine 12/28/14 documented as of this encounter
--- OUTSIDE RECORDS SUMMARY | 2025-05-17 16:30 | XMS_ITS | Encounter Summary ---
Author Organization [facility] Address [address] [place] [address] Care Team Providers Care Electronic Security Specialist Name Role Phone Marilynn Hodges MD Primary Care Provider [phone] [phone] Encounter Details Date Type Department Care Team Description 10/21/2016 Cook Night Report Medical Records [address] [place] [address] Consuelo Harper Social History Tobacco Use Types Packs/Day Years [...] on filedocumented in this encounter Care Teams Electronic Security Specialist Relationship Specialty Start Date End Date Marilynn Hodges MD [address] [place] [address] PCP - General Internal Medicine 12/28/14 documented as of this encounter
--- OUTSIDE RECORDS SUMMARY | 2025-05-17 16:30 | XMS_ITS | Encounter Summary ---
Author Organization [facility] Address [address] [place] [address] Care Team Providers Care Instrument Processing Tech Name Role Phone Marilynn Hodges MD Primary Care Provider [phone] -[phone] Encounter Details Date Type Department Care Team Description 07/01/2018 Primer Charger Report Medical Records [address] [place] [address] Anna Boyd Social History Tobacco Use Types Packs/Day Years [...] on filedocumented in this encounter Care Teams Instrument Processing Tech Relationship Specialty Start Date End Date Marilynn Hodges MD [address] [place] [address] PCP - General Internal Medicine 12/28/14 documented as of this encounter
--- OUTSIDE RECORDS SUMMARY | 2025-05-17 16:30 | XMS_ITS | Encounter Summary ---
Author Organization [facility] Address [address] [place] [address] Care Team Providers Care Gauger Chief Delivery Name Role Phone Rubina Mosquera MD Primary Care Provider Roxi Gonzalez MD Primary Care Prov ider Mary Baeza MD Primary Care Provider Glo Hodges Ch MD Primary Care Provider +1 -[phone] Reason for Visit * Reason Onset Date Comments Call From Patient Family 02/07/[address] Mosquera's call Encounter Details Date Type Department Care Team Description 02/07/2011 [place] [address] Rubina Mosquera MD Call From Patient Family (returning Dr. Mosquera's call) Social History Tobacco Use Types Packs/Day Years Used Date Smoking Tobacco: Passive Smo ke Exposure - Never Smoker Comments:MOM OUTSIDE Alcohol Use Standard Drinks/Week Comments Not Asked 0 (1 standard drink = 0.6 oz pur e alcohol) Sex Assigned at Date Recorded Not on file Job Start Date Occupation Industry Not on file Not on file Not on file documented as of this encounter Miscellaneous Notes * Telephone Encounter - Sariah Almeida - 02/07/2011 4:23 PM EDT Dad called again to speak with 858 as he said she told him to call between 8:30- 5pm. I adv him she was seeing pts and would call him back patricio today. * Telephone Encounter - Sariah Romeron - 02/07/2011 12:34 PM EDT UPDATE: Dad gave [phone] his cell # to call as well as the wk#. He is returning 858's call from last night. PCP: Rubina Mosquera MD Payor: [employer] DRIFT Plan: [facility] [employer] [place] 1 Product Type: HMO [id number] * Telephone Encounter - Nay Berrios - 02/07/2011 10:34 AM EDT Symptoms patient is presenting: Dr. Mosquera tried to call dad about his daughter last night. He is returning her call. Please have doctor call him back. There is a message in computer yesterday, 02/06regarding issue. How long has patient had these symptoms?: n/a PCP: Rubina Mosquera MD Payor: [employer] DRIFT Plan: [employer] Product Type: O [id number]-Sboybni documented in this encounter Plan of Treatment Not on file documented as of this encounter Visit Diagnoses Not on filedocumented in this encounter Care Teams Gauger Chief Delivery Relationship Specialty Start Date End Date Rubina Mosquera MD PCP - General 12/17/1997 09/24/12 Roxi Radford MD [address] [place] [address] PCP - General Pediatrics 09/25/12 08/02/14 Mary Baeza MD [address] [place], [place] PCP - General Pediatrics 08/03/14 12/27/14 Marilynn Hodges MD [address] [place], [place] PCP - General Internal Medicine 12/28/14 documented as of this encounter
--- OUTSIDE RECORDS SUMMARY | 2025-05-17 16:30 | XMS_ITS | Encounter Summary ---
Author Organization [facility] Address [address] [place] [address] Care Team Providers Care Director Of Procurement Name Role Phone Roxi Radford MD Primary Care Prov ider Mary Baeza MD Primary Care Provider Glo bennett Hodges Ch MD Primary Care Provider +1 -[phone] Encounter Details Date Type Department Care Team Description 10/19/2012 Residential Therapist Report Medical Records [address] [place] [address] Davonte Hallman MD Social History Tobacco Use Types Packs/Day Years Used Date Smoking Tobacco: Passive Smo ke Exposure - Never Smoker Smokeless Tobacco: Never Comments:MOM OUTSIDE Alcohol Use [...] on filedocumented in this encounter Care Teams Director Of Procurement Relationship Specialty Start Date End Date Roxi Radford MD [address] [place] [address] PCP - General Pediatrics 09/25/12 08/02/14 Mary Baeza MD [address] [place] [address] PCP - General Pediatrics 08/03/14 12/27/14 Marilynn Hodges MD [address] [place] [address] PCP - General Internal Medicine 12/28/14 documented as of this encounter
--- OUTSIDE RECORDS SUMMARY | 2025-05-17 16:30 | XMS_ITS | Encounter Summary ---
Author Organization [facility] Address [address] [place] [address] Care Team Providers Care Insurance Verification Rep Name Role Phone Rubina Mosquera MD Primary Care Provider Unavaila Roxi Moseley MD Primary Care Prov ider Mary Baeza MD Primary Care Provider Glo Hodges Ch MD Primary Care Provider +1 -[phone] Encounter Details Date Type Department Care Team Description 02/17/2003 Telephone Medicine/Pediatrics - [address] [phone] Haroldo Mccauley MD Social History Tobacco Use Types Packs/Day Years Used Date Smoking Tobacco: Never Assessed Sex Assigned at Date Recorded Not on file Job Start Date Occupation Industry Not on file Not on file Not on file documented as of this encounter Plan of Treatment Not on file documented as of this encounter Visit Diagnoses Not on filedocumented in this encounter Care Teams Insurance Verification Rep Relationship Specialty Start Date End Date Rubina Mosquera MD PCP - General 12/17/1997 09/24/12 Roxi Radford MD [address] [place] [address] PCP - General Pediatrics 09/25/12 08/02/14 Mary Baeza MD [address] [place] [address] PCP - General Pediatrics 08/03/14 12/27/14 Marilynn Hodges MD [address] [place] [address] PCP - General Internal Medicine 12/28/14 documented as of this encounter
--- OUTSIDE RECORDS SUMMARY | 2025-05-17 16:30 | XMS_ITS | Encounter Summary ---
Author Organization [facility] Address [address] [place] [address] Care Team Providers Care Measurement Operator Name Role Phone Marilynn Hodges MD Primary Care Provider [phone] -[phone] Reason for Visit * Reason Onset Date Comments Orders Call 10/23/2021 Encounter Details Date Type Department Care Team Description 10/23/2021 Telephone Adult Medicine - [place] [address] [place] [address] Marilynn Hodges MD [address] [place] [address] Orders Call Social History Tobacco Use Types [...] encounter Miscellaneous Notes * Telephone Encounter - Shaneka William M.A. - 10/24/2021 2:30 PM EST Pt notified that letters have been placed. * Telephone Encounter - Nai Irwin M.A. - 10/23/2021 11:36 AM EST Pt looking for her lab orders for liver functions and AMA antibodies. Pended orders for review. * Telephone Encounter - Shaneka Velazquez - 10/23/2021 10:48 AM EST Pt looking for her lab orders for liver funtions and ama antibodys - please advise documented in this encounter Plan of Treatment Not on file documented as of this encounter Results * HEPATIC FUNCTION (LIVER) PANEL (10/26/2021 12:09 PM EST) Albumin 4.4 3.2 - 5.0 G/dL 10/26/2021 2:31 PM EST [facility] TOTAL PROTEIN (TP) 7.4 6.0 - 8.0 G/dL 10/26/2021 2:38 PM EST [facility] BILIRUBIN TOTAL 0.6 0.0 - 1.4 mg/dL 10/26/2021 2:38 PM EST [facility] BILIRUBIN DIRECT 0.2 0.0 - 0.3 mg/dL 10/26/2021 2:38 PM EST [facility] BILIRUBIN INDIRECT 0.4 0.0 - 1.1 mg/dL 10/26/2021 2:38 PM EST [facility] SGOT 17 10 - 42 U/L 10/26/2021 2:38 PM EST [facility] SGPT 19 10 - 60 U/L 10/26/2021 2:38 PM EST [facility] ALK PHOS 78 42 - 121 U/L 10/26/2021 2:38 PM EST [facility] 10/26/2021 12:0 9 PM EST 10/26/2021 12:09 PM EST Narrative [facility] - 10/26/2021 2:38 PM EST Release to patient->Immediate Marilynn Hodges MD LAB [facility] * (ABNORMAL) ANTI-MITOCHONDRIAL ANTIBODY (10/26/2021 12:08 PM EST) AMA QUANTITATIVE 25.4(H) <20 UNITS 11/01/19 10:01 AM EST [facility] MITOCHONDRIAL ANTIBODIES POSITIVE NEGATIVE 10/31/2021 10:01 AM EST [facility] 10/26/2021 12:0 8 PM EST 10/26/2021 12:09 PM EST Narrative [facility] - 10/31/2021 10:01 AM EST Release to patient->Immediate Marilynn Hodges MD LAB [facility] documented in this encounter Visit Diagnoses Diagnosis Fibromyalgia- Primary Mylagia and myositis, unspecified Fibromyalgia Mylagia and myositis, unspecified documented in this encounter Care Teams Measurement Operator Relationship Specialty Start Date End Date Marilynn Hodges MD [address] [place] [address] PCP - General Internal Medicine 12/28/14 documented as of this encounter
--- OUTSIDE RECORDS SUMMARY | 2025-05-17 16:30 | XMS_ITS | Encounter Summary ---
Author Organization [facility] Address [address] [place] [address] Care Team Providers Care Ocean Transportation Intermediary Name Role Phone Rubina Mosquera MD Primary Care Provider Unavaila Roxi Moseley MD Primary Care Prov ider Mary Baeza MD Primary Care Provider Glo Hodges Ch MD Primary Care Provider [phone] -[phone] Encounter Details Date Type Department Care Team Description 07/15/2011 Refill OBGYN - [place] [address] [place] [address] Roes Barr MD Social History Tobacco Use Types Packs/Day [...] on filedocumented in this encounter Care Teams Ocean Transportation Intermediary Relationship Specialty Start Date End Date Rubina Mosquera MD PCP - General 12/17/1997 09/24/12 Roxi Radford MD [address] [place] [address] PCP - General Pediatrics 09/25/12 08/02/14 Mary Baeza MD [address] [place] [address] PCP - General Pediatrics 08/03/14 12/27/14 Marilynn Hodges MD [address] [place] [address] PCP - General Internal Medicine 12/28/14 documented as of this encounter
--- OUTSIDE RECORDS SUMMARY | 2025-05-17 16:30 | XMS_ITS | Encounter Summary ---
Author Organization [facility] Address [address] [place] [address] Care Team Providers Care Collar Fuser Name Role Phone Rubina Mosquera MD Primary Care Provider Unavaila Roxi Moseley MD Primary Care Prov ider Mary Baeza MD Primary Care Provider Glo Hodges Ch MD Primary Care Provider +1 [phone] Encounter Details Date Type Department Care Team Description 12/02/2011 Marriage Therapist Report Medical Records [address] [place] [address] Davonte Hallman MD Social History Tobacco Use [...] on filedocumented in this encounter Care Teams Collar Fuser Relationship Specialty Start Date End Date Rubina Mosquera MD PCP - General 12/17/1997 09/24/12 Roxi Radford MD [address] [place] [address] PCP - General Pediatrics 09/25/12 08/02/14 Mary Baeza MD [address] [place] [address] PCP - General Pediatrics 08/03/14 12/27/14 Marilynn Hodges MD [address] [place] [address] PCP - General Internal Medicine 12/28/14 documented as of this encounter
--- OUTSIDE RECORDS SUMMARY | 2025-05-17 16:30 | XMS_ITS | Encounter Summary ---
Author Organization [facility] Address [address] [place] [address] Care Team Providers Care Thermo Processor Name Role Phone Rubina Mosquera MD Primary Care Provider Roxi Gonzalez MD Primary Care Prov ider Mary Baeza MD Primary Care Provider Glo Hodges Ch MD Primary Care Provider [phone] Reason for Visit * Reason Onset Date Comments REFERRAL 06/15/[address] Mosquera Encounter Details Date Type Department Care Team Description 06/15/2012 Telephone Pediatrics - [address] [address] Rubina Mosquera MD REFERRAL (for Dr. Mosquera) Social History Tobacco Use Types Packs/Day Years [...] encounter Miscellaneous Notes * Telephone Encounter - Nay Berrios - 06/15/2012 3:07 PM EDT Symptoms patient is presenting: Patient is seeing Dr. Hallman for migraines and he said to call [facility] to get a referral to [facility] for physical therapy for migraines and the carrying of her book bag to see if there is any relation. How long has patient had these symptoms?: n/a PCP: Rubina Mosquera MD Payor: Celect Plan: PPO $25 [employer] Product Type: PPO [id number] documented in this encounter Plan of Treatment Not on file documented as of this encounter Visit Diagnoses Not on filedocumented in this encounter Care Teams Thermo Processor Relationship Specialty Start Date End Date Rubina Mosquera MD PCP - General 12/17/1997 09/24/12 Roxi Radford MD [address] [place] [address] PCP - General Pediatrics 09/25/12 08/02/14 Mary Baeza MD [address] [place] [address] PCP - General Pediatrics 08/03/14 12/27/14 Marilynn Hodges MD [address] [place] [address] PCP - General Internal Medicine 12/28/14 documented as of this encounter
--- OUTSIDE RECORDS SUMMARY | 2025-05-17 16:30 | XMS_ITS | Encounter Summary ---
Author Organization [facility] Address [address] [place] [address] Care Team Providers Care Flag Maker Name Role Phone Marilynn Hodges MD Primary Care Provider [phone] Encounter Details Date Type Department Care Team Description 06/30/2018 Release of Information Medical Records [address] [place] [address] Abstract, Provider Social History Tobacco Use Types [...] on filedocumented in this encounter Care Teams Flag Maker Relationship Specialty Start Date End Date Marilynn Hodges MD [address] [place] [address] PCP - General Internal Medicine 12/28/14 documented as of this encounter
--- OUTSIDE RECORDS SUMMARY | 2025-05-17 16:30 | XMS_ITS | Encounter Summary ---
Author Organization [facility] Address [address] [place] [address] Care Team Providers Care Ceramics Instructor Name Role Phone Roxi Radford MD Primary Care Prov ider Mary Baeza MD Primary Care Provider Glo bennett Hodges Ch MD Primary Care Provider [phone] Encounter Details Date Type Department Care Team Description 10/13/2012 Orders Only Pediatrics - [place] [address] [place] [address] Roxi Radford MD [address] [place] [address] Other specified intestinal malabsorption (Primary Dx) Social History Tobacco Use Types Packs/Day Years [...] documented as of this encounter Results * (ABNORMAL) FOOD PANEL (10/16/2012 10:10 AM EST) EGG WHITE CONC 0.06 <0.06 IU/mL [facility] EGG WHITE CLASS 0/I(A) NEGATIVE CLASS [facility] COW'S MILK CONC 0.04 <0.06 IU/mL [facility] COW'S MILK CLASS NEGATIVE NEGATIVE CLASS [facility] WHEAT CONC 0.03 <0.06 IU/mL [facility] WHEAT CLASS NEGATIVE NEGATIVE CLASS [facility] CORN (FLOUR) CONC 0.00 <0.06 IU/mL [facility] CORN (FLOUR) CLASS NEGATIVE NEGATIVE CLASS [facility] PEANUT CONC 0.00 <0.06 IU/mL [facility] PEANUT CLASS NEGATIVE NEGATIVE CLASS [facility] SOYBEAN CONC 0.00 <0.06 IU/mL [facility] SOYBEAN CLASS NEGATIVE NEGATIVE CLASS [facility] TOMATO CONC 0.00 <0.06 IU/mL [facility] TOMATO CLASS NEGATIVE NEGATIVE CLASS [facility] ORANGE CONC 0.00 <0.06 IU/mL [facility] ORANGE CLASS NEGATIVE NEGATIVE CLASS [facility] APPLE CONC 0.00 <0.06 IU/mL [facility] APPLE CLASS NEGATIVE NEGATIVE CLASS [facility] CHICKEN CONC 0.00 <0.06 IU/mL [facility] CHICKEN CLASS NEGATIVE NEGATIVE CLASS [facility] 10/16/2012 10:1 0 AM EST 10/16/2012 10:11 AM EST Narrative [facility] - 10/19/2012 1:44 PM EST Includes: egg White, Wheat, Peanut, Tomato, Apple, Cow's Milk, Oden Flour, Soybean, Gilpin, Chicken. There are also specific individual RAST tests for many other common foods. Contact lab for details. Roxi Radford MD LAB [facility] documented in this encounter Visit Diagnoses Diagnosis Other specified intestinal malabsorption- Primary Other specified intestinal malabsorption documented in this encounter Care Teams Ceramics Instructor Relationship Specialty Start Date End Date Roxi Radford MD [address] [place] [address] PCP - General Pediatrics 09/25/12 08/02/14 Mary Baeza MD [address] [place] [address] PCP - General Pediatrics 08/03/14 12/27/14 Marilynn Hodges MD [address] [place] [address] PCP - General Internal Medicine 12/28/14 documented as of this encounter
--- OUTSIDE RECORDS SUMMARY | 2025-05-17 16:30 | XMS_ITS | Encounter Summary ---
Author Organization [facility] Address [address] [place] [address] Care Team Providers Care Environmental Health Nurse Name Role Phone Marilynn Hodges MD Primary Care Provider [phone] Reason for Visit * Reason Onset Date Comments Form Presser Feedback 07/20/2021 LENA KILGORE Encounter Details Date Type Department Care Team Description 07/20/2021 Telephone Adult Medicine - [place] [address] [place] [address] Marilynn Hodges MD [address] [place] [address] Form Presser Feedback (LENA HAY ) Social History Tobacco Use Types Packs/Day Years [...] encounter Miscellaneous Notes * Telephone Encounter - Kat Brown - 07/20/2021 3:53 PM EST Patient is all set; referral is authorized and assigned to the correct provider. documented in this encounter Plan of Treatment Not on file documented as of this encounter Visit Diagnoses Not on filedocumented in this encounter Care Teams Environmental Health Nurse Relationship Specialty Start Date End Date Marilynn Hodges MD [address] [place] [address] PCP - General Internal Medicine 12/28/14 documented as of this encounter
--- OUTSIDE RECORDS SUMMARY | 2025-05-17 16:31 | XMS_ITS | Patient Health Record ---
Author Organization [facility] Address [address] [place] [address] Care Team Providers Care Quick Sketch Artist Name Role Phone MIKE REAVES Unavailable [phone] Allergies Allergen (clinical drug ingredient) Drug/Non Drug Allergy documented on EMR Reaction Allergy Type Onset Date Status Information temporarily unavailable Latex RASH/ IRRITATION Allergy Active Results Component Value Reference Range Notes PDF Report Reviewed date:11/15/2024 04:53:06 PM Interpretation: Performing Lab:[facility] [place], [address] [place] [address], Phone - [phone], Director - Nneka Notes/Report: and Drug Administration. by [facility]. It has not been cleared or approved by the Food was developed and its performance characteristics determined Test(s) [id number] Progesterone LCMS Written Authorization Reviewed date:11/05/2024 10:27:07 AM Interpretation: Performing Lab:[facility] [address], Phone - [phone], Director - Nneka Notes/Report: Test(s) [id number] Progesterone LCMS was developed and its performance characteristics determined by [facility]. It has not been cleared or approved by the Food and Drug Administration. Written Authorization Written Authorization Received. Authorization received from Original Requisition 11-01-2024 Logged by Moni Bhatia PDF Report Reviewed date:11/05/2024 10:27:16 AM Interpretation: Performing Lab:[facility], [address] [place] [address], Phone - [phone], Director - Diana Notes/Report: TSH Rfx on Abnormal to Free [id number] Reviewed date:11/15/2024 04:51:21 PM Interpretation: Performing Lab:[facility] [place], [address] [place] [address], Phone - [phone], Director - Diana Notes/Report: TSH 1.700 0.450-4.500 uIU/mL 17-OH Progesterone LCMS-0700 85 Reviewed date:11/15/2024 04:51:13 PM Interpretation: Performing Lab:[facility] [place], [facility] [place], Phone - [phone], Director - Nneka Notes/Report: Test(s) [id number] Progesterone LCMS was developed and its performance characteristics determined by [facility]. It has not been cleared or approved by the Food and Drug Administration. 17-OH Progesterone LCMS 48 Adult Female Follicular 15 - 70 Luteal 35 - 290 Estradiol-720071 Reviewed date:11/15/2024 04:51:30 PM Interpretation: Performing Lab:[facility] [place], [address] [place] [address], Phone - [phone], - Diana Notes/Report: Estradiol 33.8 Adult Female Range Follicular phase 12.5 - 166.0 Ovulation phase 85.8 - 498.0 Luteal phase 43.8 - 211.0 Postmenopausal <6.0 - 54.7 1st trimester 215.0 - >4300.0 Emil ECLIA methodology Prolactin-374008 Reviewed date:11/15/2024 04:51:35 PM Interpretation: Performing Lab:[facility] [place], [address] [place] [address], Phone - [phone], Director Damien Ortiz Notes/Report: Prolactin 17.2 4.8-33.4 ng/mL Progesterone-413147 Reviewed date:11/01/2024 09:24:56 AM Interpretation: Performing Lab:[facility] [place], [address] [place] [address], Phone - [phone], Director Damien Ortiz Notes/Report: Progesterone 0.4 Follicular phase 0.1 - 0.9 Luteal phase 1.8 - 23.9 Ovulation phase 0.1 - 12.0 First trimester 11.0 - 44.3 Second trimester 25.4 - 83.3 Third trimester 58.7 - 214.0 Postmenopausal 0.0 - 0.1 FSH-333757 Reviewed date:11/15/2024 04:51:41 PM Interpretation: Performing Lab:[facility] [place] [facility] [place], Phone - [phone], Director - Diana Notes/Report: FSH 6.3 Adult Female Range Follicular phase 3.5 - 12.5 Ovulation phase 4.7 - 21.5 Luteal phase 1.7 - 7.7 Postmenopausal 25.8 - 134.8 Luteinizing Hormone(LH)-0042 83 Reviewed date:11/15/2024 04:51:50 PM Interpretation: Performing Lab:[facility] [place], [facility] [place], Phone - [phone], Director - Diana Notes/Report: LH 6.7 Adult Female Range Follicular phase 2.4 - 12.6 Ovulation phase 14.0 - 95.6 Luteal phase 1.0 - 11.4 Postmenopausal 7.7 - 58.5 Testosterone-172529 Reviewed date:11/15/2024 04:51:58 PM Interpretation: Performing Lab:[facility] [place], [facility] [place], Phone - [phone], Director - Diana Notes/Report: Testosterone 66 13-71 ng/dL Reason For Referral No Information Medications Medication SIG (Take, Route, Frequency, Duration) Notes Start Date End Date Status Slynd 4 MG 1 tablet Orally Once a day; Duration: 84 days 11/15/2024 Active Social History Tobacco Use: Social History Observation Description Date Details (start date - stop date) Never Smoker NA - NA Tobacco Use/Smoking Question Answer Notes Are you a nonsmoker Alcohol Screen (Audit-C) Question Answer Notes Did you have a drink containing alcohol in the p ast year? No Points 0 Interpretation Negative Problems Problem Type SNOMED Code ICD Code Onset Dates Problem Status W/U Status Risk Notes Problem Acute stress disorder (01037195) Other reactions to severe stress (F43.8) Active confirmed Problem Migraine with aura (9275628) Migraine with aura, not intractable, without status migrainosus (G43.109) Active confirmed Problem Uncomplicated asthma (disorder) (429454676) Unspecified asthma, uncomplicated (J45.909) Active confirmed Problem Hirsutism (082566662) Hirsutism (L68.0) Active confirmed Problem Irregular menstruation (67544807) Irregular menstruation, unspecified (N92.6) Active confirmed Vital Signs Temperature 97.1 degrees Fahrenheit 11/15/2024 Blood pressure diastolic 64 mm Hg 11/15/2024 Height 68 in 11/15/2024 Blood pressure systolic 116 mm Hg 11/15/2024 Weight 139 lbs 11/15/2024 BMI 21.13 kg/m2 11/15/2024 Encounters Encounter Location Date Provider Diagnosis [address] [place] [facility] [address] [place] [address] 10/29/2024 MIKE REAVES [address] [address] 10/21/2024 MIKE REAVES Irregular menstruation, unspecified N92.6 ; Hirsutism L68.0 and Pelvic Pain R10.[address] [address] 11/15/2024 MIKE REAVES Irregular menstruation, unspecified N92.6 and Hirsutism L68.0 Assessments Encounter Date Diagnosis (ICD Code) Assessment Notes Treatment Notes Treatment Clinical Notes Section Notes 10/21/2024 Hirsutism (ICD-10 - L68.0) Likely PCOS-related. Patient is encouraged to schedule an appointment after her bloodwork so that we can review all the test results and make a plan. She is already doing electrolysis for her hair growth and she is pleased with the results. Criteria for PCOS include 2 of the followin. clinical or biochemical evidence of hyperandrogenism 2. oligomenorrhea 3. polycystic ovaries on pelvic ultrasound Consider SHALA's for treatment (this is first line), avoiding levonorgestrel, as it is the most androgenic. If SHALA's are not effective after 6 months, consider adding an antiandrogen such as spironolactone. Metformin is not used to treat hirsutism. 10/21/2024 Irregular menstruation, unspecified (ICD-10 - N92.6) 11/15/2024 Hirsutism (ICD-10 - L68.0) Likely PCOS-related, despite not meeting full criteria. She is already doing electrolysis for her hair growth and she is pleased with the results. Criteria for PCOS include 2 of the followin. clinical or biochemical evidence of hyperandrogenism 2. oligomenorrhea 3. polycystic ovaries on pelvic ultrasound Consider SHALA's for treatment (this is first line), avoiding levonorgestrel, as it is the most androgenic. She has migraines with Aura, so COCs are contraindicated. Consider Slynd (with drospirenone) if patient is unable to take COCs, as it has a lower androgenic activity than Delia (with norethindrone). If SHALA's are not effective after 6 months, consider adding an antiandrogen such as spironolactone. Metformin is not used to treat hirsutism. 11/15/2024 Irregular menstruation, unspecified (ICD-10 - N92.6) 10/21/2024 Pelvic Pain (ICD-10 - R10.2) Pelvic pain is associated with back pain. Will check u/s for evidence of polycystic ovaries, as well as ovarian cysts (which can cause pain). 10/21/2024 Other 45 minutes were spent on the day of the visit reviewing and prepping the chart, obtaining the HPI, examining the patient, counseling the patient on the diagnosis, ordering/refilli ng medications, ordering tests and procedures and documenting this encounter. 11/15/2024 Other 32 minutes were spent on the day of the visit reviewing and prepping the chart, obtaining the HPI, examining the patient, counseling the patient on the diagnosis, ordering/refilli ng medications, ordering tests and procedures and documenting this encounter. Plan Of Treatment Pending Test Test Name Order Date ULTRASOUND: PELVIC W/TRANSVAGINAL 2024 Testosterone-[id number] 10/21/2024 Prolactin-704654 10/21/2024 17-OH Progesterone [facility]-349810 TSH reflex to [id number] 10/21/2024 FSH+LH+E2 10/21/2024 Next Appt Details Provider Name:MIKE Fabián Hinojosa, 06/17/2025 10:30:00 AM, [address], [address], [place], [address], Insurance Providers Payer Name Payer Address Payer Phone Subscriber Number Group Number Insured Name Patient Relationship to Insured Coverage Start Date Coverage End Date [facility] [id number] [address] [facility], [address] [place] [phone] [id number] LENA ESPINOSA Self - patient is the insured Medical (General) History Medical History History ICD Code Other reactions to severe stress F43.8 Unspecified asthma, uncomplicated J45.90 9 Migraine with aura, not intractable, wit hout status migrainosus G43.109 Surgical History Surgery Date(Month/Year)
--- OUTSIDE RECORDS SUMMARY | 2025-05-17 16:31 | XMS_ITS | Encounter Summary ---
Author Organization [facility] Address [address] [place] [address] Care Team Providers Care Locomotive Electrician Name Role Phone Rubina Mosquera MD Primary Care Provider Roxi Gonzalez MD Primary Care Prov ider Mary Baeza MD Primary Care Provider Glo Hodges Ch MD Primary Care Provider [phone] Encounter Details Date Type Department Care Team Description 05/14/2005 Orders Only Medicine/Pediatrics - [address] [address] Haroldo Mccauley MD ACUTE PHARYNGITIS (Primary Dx) Social History Tobacco Use Types Packs/Day Years Used Date Smoking Tobacco: Never Assessed Sex Assigned at Date Recorded Not on file Job Start Date Occupation Industry Not on file Not on file Not on file documented as of this encounter Plan of Treatment Not on file documented as of this encounter Procedures Procedure Name Priority Date/Time Associated Diagnosis Comments GROUP A STREP CULTURE-[place] Routine 05/14/2005 9:50 AM EDT Acute Pharyngitis documented in this encounter Results * GROUP A STREP CULTURE-[place] (05/14/2005 9:50 AM EDT) STREP SCREEN THROAT NEGATIVE FOR BETA HEMOLYTIC STREPTOCOCCUS GROUP A Testing Performed at [facility], [address] [place] [address] [facility] 05/14/2005 9:50 AM EDT 05/14/2005 9:59 AM EDT Haroldo Mccauley MD LAB [facility] documented in this encounter Visit Diagnoses Diagnosis Acute pharyngitis- Primary documented in this encounter Care Teams Locomotive Electrician Relationship Specialty Start Date End Date Rubina Mosquera MD PCP - General 12/17/1997 09/24/12 Roxi Radford MD [address] [place] [address] PCP - General Pediatrics 09/25/12 08/02/14 Mary Baeza MD [address] [place] [address] PCP - General Pediatrics 08/03/14 12/27/14 Marilynn Hodges MD [address] [place] [address] PCP - General Internal Medicine 12/28/14 documented as of this encounter
--- OUTSIDE RECORDS SUMMARY | 2025-05-17 16:31 | XMS_ITS | Patient Health Record ---
Author Organization [facility] Address [address] [facility] [address] Care Team Providers Care Early Head Start Director Name Role Phone Annie Jane MD Primary Care Provider Miles Blair Unavailable [phone] Harleen Whitehead MD Unavailable Un available Allergies Allergen (clinical drug ingredient) Drug/Non Drug Allergy documented on EMR Reaction Allergy Type Onset Date Status basil oil Basil Oil (uncoded) Sensitivity to migraines Allergy Active pear flavor (uncoded) Unknown Allergy Active Banana Flavor Unknown Drug Allergy Act hakeem Coconut Flavor Unknown Drug Allergy Ac tive Dye [facility] Blue 1 Unknown Drug Allergy Ac tive [place] Flavor Unknown Drug Allergy Acti ve orange allergenic extract [place] (Diagnostic) Unknown Drug Allergy Active Latex Latex Unknown Allergy Active Tree Nuts Unknown Allergy Active Reason For Referral No Information Medications Medication SIG (Take, Route, Frequency, Duration) Notes Start Date End Date Status Albuterol Sulfate 108 (90 Base) MCG/ACT 1 puff as needed Inhalation every 4 hrs Active Cephalexin 500 MG 1 tablet Orally Twic e a day; Duration: 10 day(s) Active Cephalexin 500 MG 1 tablet Orally Twic e a day; Duration: 10 day(s) Not-Kain ing Social History Tobacco Use: Social History Observation Description Date Details (start date - stop date) Never Smoker NA - NA Tobacco Use/Smoking Question Answer Notes Are you a: nonsmoker Additional Findings: Tobacco Non-User Current no n-smoker Alcohol Screen Question Answer Notes Did you have a drink containing alcohol in the p ast year? No Points 0 Interpretation Negative Tobacco use other than smoking: Question Answer Notes Are you an other tobacco user? No Problems Problem Type SNOMED Code ICD Code Onset Dates Problem Status W/U Status Risk Notes Problem Ingrowing nail (264558685) Ingrowing nail (L60.0) Active confirmed Plan Of Treatment Pending Test Test Name Order Date 98607- Debride <25 sq cm 06/08/2020 08101 I&D ABSCESS- SIMPLE,SINGLE 021 48911 I&D ABSCESS- SIMPLE,SINGLE 020 35245- I&D ABSCESS-COMPLICATED,MULTI 14929- I&D ABSCESS-COMPLICATED,MULTI Insurance Providers Payer Name Payer Address Payer Phone Subscriber Number Group Number Insured Name Patient Relationship to Insured Coverage Start Date Coverage End Date [facility] [address] [place] [address] [phone] [id number] Jael Brower Child - Insured does not have Financial Responsibility (includes legally adopted child) Medical (General) History Medical History History ICD Code Anxiety asthma Depression Fibromyalgia Lactose intolerance Migraines PTSD Suicidal Ideations spinal injury Surgical History Surgery Date(Month/Year) Hospitalization History Reason Date(Month/Year) Urgent Care- cellulitis 10/2020
--- OUTSIDE RECORDS SUMMARY | 2025-05-17 16:31 | XMS_ITS | Encounter Summary ---
Author Organization [facility] Address [address] [place] [address] Care Team Providers Care Steak Sauce Maker Name Role Phone Rubina Mosquera MD Primary Care Provider Roxi Gonzalez MD Primary Care Prov ider Mary Baeza MD Primary Care Provider Glo Hodges Ch MD Primary Care Provider [phone] Encounter Details Date Type Department Care Team Description 02/24/2005 Orders Only Pediatrics - [address] [address] Jefferson Garcia ACUTE PHARYNGITIS (Primary Dx) Social History Tobacco Use Types Packs/Day Years Used Date Smoking Tobacco: Never Assessed Sex Assigned at Date Recorded Not on file Job Start Date Occupation Industry Not on file Not on file Not on file documented as of this encounter Plan of Treatment Scheduled Orders Name Type Priority Associated Diagnoses Orde r Schedule VENIPUNCTURE Lab Routine Acute Pharyngitis Ordered: 02/24/2005 documented as of this encounter Visit Diagnoses Diagnosis Acute pharyngitis- Primary documented in this encounter Care Teams Steak Sauce Maker Relationship Specialty Start Date End Date Rubina Mosquera MD PCP - General 12/17/1997 09/24/12 Roxi Radford MD [address] [place] [address] PCP - General Pediatrics 09/25/12 08/02/14 Mary Baeza MD [address] [place] [address] PCP - General Pediatrics 08/03/14 12/27/14 Marilynn Hodges MD [address] [place] [address] PCP - General Internal Medicine 12/28/14 documented as of this encounter
== END 2025-05-17 13:55 | disposition home or self-care (01) ==
LOC: HO.HNS 13:27
PROVIDERS: PCP Nurse Practitioner Family; Visit Provider Physician Assistant
DX: Z98.890 Other specified postprocedural states (principal)
CPT/HCPCS: 99024

== ENCOUNTER → 2025-05-17 13:26 | Outpatient (BNVA) | payer OTHER, SELFPAY | PROVIDERS: PCP Nurse Practitioner Family; Visit Provider Physician Assistant | DX: Z47.89 Encounter for other orthopedic aftercare (principal); Z98.890 Other specified postprocedural states | CPT/HCPCS: 99212 ==

== ENCOUNTER 2025-06-23 10:25 | Outpatient (AMB) | payer OTHER, SELFPAY ==
--- OUTSIDE RECORDS SUMMARY | 2024-10-29 05:10 | XMS_ITS ---
Author Organization [facility] Address [address] [address] Care Team Providers Care Building Construction Engineer Name Role Phone MIKE REAVES Unavailable [phone] REASON FOR VISIT ULTRA -PELVIC PAIN Encounters Encounter Location Date Provider Diagnosis [facility] [address] [address] 10/29/2024 MIKE REAVES Plan Of Treatment No Information Progress Notes * FRANCISCADARAMARIEFRAINOB: [birth year] (29 yo F)Acc No.[id number]:10/29/2024 PROGRESS NOTES Patient: LENA NGO Provider: Fabián REAVES MD :1995 A ge:29 Y S ex:Female Date:10/29/2024 Address:[address] [place], [place] [id number] Subjective: * Chief Complaints: * 1 . ULTRA -PELVIC PAIN. * Medical History: Objective: * Vitals: Assessment: Plan: * Treatment: * Images: Billing Information: * Visit Code: * Procedure Codes: * Electronic signature of MIKE REAVES MD on 06/23/2025 at 12:41 PM EDT Sign off status: Pending * Provider: Fabián REAVES MD Date: 0 10/29/2024 Generated for Lukei ng/Fahuyen/eTransmitting on: 1 12:41 PM EDT
--- OUTSIDE RECORDS SUMMARY | 2025-06-17 06:30 | XMS_ITS ---
Author Organization [employer] Address [address] [address] Care Team Providers Care Sample Coordinator Name Role Phone MIKE REAVES Unavailable [phone] REASON FOR VISIT Annual DIRECT RESPONSE CONSULTANT Physical Encounters Encounter Location Date Provider Diagnosis [employer] [facility] [address] [place] [phone] 06/17/2025 MIKE REAVES Encounter for gynecological examination (general) (routine) without abnormal findings Z01.419 ; Encounter for screening for infections with a predominantly sexual mode of transmission Z11.3 and Hirsutism L68.0 Assessments Encounter Date Diagnosis (ICD Code) Assessment Notes Treatment Notes Treatment Clinical Notes Section Notes 06/17/2025 Encounter for gynecological examination (general) (routine) without abnormal findings (ICD-10 - Z01.419) Discussed cervical cancer screening with cytology every 3 years as per ASCCP guidelines. Advised continued annual pelvic exams. Patient encouraged to increase her level of exercise. SBE technique encouraged/tau ght. Safe sexual practices and STI prevention discussed. 06/17/2025 Encounter for screening for infections with a predominantly sexual mode of transmission (ICD-10 - Z11.3) 06/17/2025 Hirsutism (ICD-10 - L68.0) Plan Of Treatment Treatment Notes Assessment Notes Encounter for gynecological examination (general) (routine) without abnormal findings Discussed cervical cancer screening with cytology every 3 years as per ASCCP guidelines. Advised continued annual pelvic exams. Patient encouraged to increase her level of exercise. SBE technique encouraged/taught. Safe sexual practices and STI prevention discussed. Next Appt Details Follow Up: 1 Year, Reason: Y early Legislators Exam Progress Notes * OZ ESPINOSAOB: [birth year] (29 yo F)Acc No.[id number]:06/17/2025 PROGRESS NOTES Patient: SHAKILA NGO Provider: Fabián REAVES MD :[id number] A ge:29 Y S ex:Female Date:06/17/2025 Address:[address] [place] [address], [place] [id number] Subjective: * Chief Complaints: * 1 . Annual DIRECT RESPONSE CONSULTANT Physical. 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 She has been in state of good health since her last exam. She has the following concerns: She has not received the Covid-19 vaccine. She was started on Slynd for hirsutism in 10/2024. She was already doing electrolysis. She reports . If hormonal contraception is not effective after 6 months, consider adding an antiandrogen such as spironolactone. Relationship status: . She is *not currently sexually active. Sexual partner(s): male. She does wish to have STI testing. Menses: *monthly, lasting 7 days, heavy flow. She will saturate a medium to heavy pad in about 2 hours. No intermenstrual bleeding except following a Plan B pill. Contraception: *condoms, Slynd The patient has never had an abnormal pap. Her last pap was 07/08/22 - NIL. Next pap due in 2024. The patient does exercise. She exercises x 4 days/week by walking, dancing. * ROS: A nnual Legislators Exam ROS: Bowel habit changes d enies. B ladder symptoms d enies. V aginal discharge, unusual d enies. V aginal itch or odor d enies. w eight or appetite changes d enies. C hest pains, SOB d enies. d epression d enies.? B reast: Denies B reast lump. D enies N ipple discharge.? H ematology: Denies S wollen glands. S kin: Patient denies c hanging moles. P sychiatric: Denies A nxiety. * Medical History: Objective: * Vitals: * Examination: G eneral Examination: GENERAL APPEARANCE: i n no acute distress,well developed, well nourished,asset accountant present in room. HEAD: n ormocephalic, atraumatic. NECK/THYROID: n kelby supple, full range of motion,thyroid normal. LYMPH NODES: n o axillary or supraclavicular adenopathy.? SKIN: n ormal,good turgor,no rashes,no suspicious lesions.? BREASTS: n ormal,no dimpling,no discharge,no drainage,no masses palpable bilaterally,nontender. ABDOMEN: s oft, non-tender, non distended without masses or hepatosplenomegay. BACK: n o costovertebral angle tenderness. FEMALE GENITOURINARY: V ulva without lesions or masses, vagina pink without abnormal discharge, lesions or masses, cervix appears normal and is not tender to palpation, uterus is normal size, mobile, nontender and anteverted, ovaries are not palpable. NEUROLOGIC: a lert and oriented,gait normal. PSYCH: a lert, oriented,cognitive function intact,cooperative with exam,good eye contact,mood/affect full range,speech clear. Assessment: * Assessment: 1. E ncounter for gynecological examination (general) (routine) without abnormal findings - Z01.419 (Primary) 2 . E ncounter for screening for infections with a predominantly sexual mode of transmission - Z11.3 3 . H irsutism - L68.0 Plan: * Treatment: * Follow Up: 1 Year (Reason: Yearly Legislators Exam) * Images: Billing Information: * Visit Code: 76871 Preventive Care Est Pt. Age 18-39. 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 She has been in state of good health since her last exam. She has the following concerns: She has not received the Covid-19 vaccine. She was started on Slynd for hirsutism in 10/2024. She was already doing electrolysis. She reports . If hormonal contraception is not effective after 6 months, consider adding an antiandrogen such as spironolactone. Relationship status: . She is *not currently sexually active. Sexual partner(s): male. She does wish to have STI testing. Menses: *monthly, lasting 7 days, heavy flow. She will saturate a medium to heavy pad in about 2 hours. No intermenstrual bleeding except following a Plan B pill. Contraception: *condoms, Slynd The patient has never had an abnormal pap. Her last pap was 07/08/22 - NIL. Next pap due in 2024. The patient does exercise. She exercises x 4 days/week by walking, dancing. Examination Category Sub-Category Detail Notes Category Not es General Examination GENERAL APPEARANCE: in no ac tonya distress, well developed, well nourished, asset accountant present in room HEAD: normocephalic, atrau matic NECK/THYROID: neck supple, full ra nge of motion, thyroid normal ABDOMEN: soft, non-tender, no n distended without masses or hepatosplenomegay NEUROLOGIC: alert and oriented, gait normal SKIN: normal, good turgor, no rashes, no suspicious lesions BACK: no costovertebral an gle tenderness BREASTS: normal, no dimpling, no discharge, no drainage, no masses palpable bilaterally, nontender LYMPH NODES: no axillary or supra clavicular adenopathy PSYCH: alert, oriented, cog nitive function intact, cooperative with exam, good eye contact, mood/affect full range, speech clear FEMALE GENITOURINARY: Vulva without lesi ons or masses, vagina pink without abnormal discharge, lesions or masses, cervix appears normal and is not tender to palpation, uterus is normal size, mobile, nontender and anteverted, ovaries are not palpable
--- NOTE | 2025-06-23 10:32 | HO.SPINEOV ---
Intake Visit Reasons: 2nd post op Intake Note: Ms. Galvan is here today for her 2nd post op. Harvest Worker Field Crop Required: No Allergies latex Allergy (Intermediate, Verified 05/17/25 13:28) Rash Assessment & Plan Assessment & Plan (1) S/P lumbar microdiscectomy: Code(s): Z98.890 - Other specified postprocedural states Category: Surgical Plan: Procedure: Right L5-S1 microdiskectomy Shakila miranda a pleasant 29-year-old female comes in today for a 2nd postoperative visit after having a right-sided L5-S1 microdiskectomy completed by Dr. Onofre. During her last visit she was still having some low-grade flare-ups of the pain, she reports that these have subsided since we saw her last. She is overall very happy with the surgery and is essentially back to regular activity. She did request that she be sent to physical therapy so she can learn how to properly exercise given her recent disc herniation. No new neurological deficits. The patient ambulates well and rises from a seated position without difficulty. I will place an order for physical therapy for Shakila. There is no need for routine continued follow up. She may follow up on an as-needed basis in the future. Amos Onofre MD,PhD [facility] Orders: Orders PT Evaluation and Treatment Today Z98.890 - Other specified postprocedural states Coding Level of Care Code Global (63102) Diagnoses S/P lumbar microdiscectomy Z98.890
--- OUTSIDE RECORDS SUMMARY | 2025-06-23 12:41 | XMS_ITS | Encounter Summary ---
Author Organization [facility] Address [address] [place] [address] Care Team Providers Care Pin Maker Name Role Phone Marilynn Hodges MD Primary Care Provider [phone] Reason for Visit * Reason Onset Date Comments Note, Other 11/17/2017 Encounter Details Date Type Department Care Team Description 11/17/2017 Telephone Adult Medicine - [address] [address] Marilynn Hodges, [address] [place] [address] Note, Other Social History Tobacco Use Types Packs/Day Years [...] encounter Miscellaneous Notes * Telephone Encounter - Galina Estrella M.A. - 11/17/2017 3:29 PM EDT Sending to medical records so that this is done correctly. * Telephone Encounter - Jennifer Mack - 11/17/2017 3:11 PM EDT The office is rrequesting a call from the provider/nurse before faxing the information. They would not provide a fax number. * Telephone Encounter - Galina Estrella M.A. - 11/17/2017 10:13 AM EDT Can we get a fax number please? * Telephone Encounter - Jennifer Mack - 11/17/2017 9:38 AM EDT Jael panchal mother is requesting office notes to be sent to Endocrinology department at [facility] in [place]. The office can be contacted at [phone]. The office is requesting a call first.Please send chiropractic and alcat [employer] sensativity list as well. Pts insurance doesn't need referral. documented in this encounter Plan of Treatment Not on file documented as of this encounter Visit Diagnoses Not on filedocumented in this encounter Care Teams Pin Maker Relationship Specialty Start Date End Date Marilynn Hodges MD [address] [place] [phone] PCP - General Internal Medicine 12/28/14 documented as of this encounter
--- OUTSIDE RECORDS SUMMARY | 2025-06-23 12:41 | XMS_ITS | Encounter Summary ---
Author Organization [facility] Address [address] [place] [address] Care Team Providers Care Metal Buggy Operator Name Role Phone Marilynn Hodges MD Primary Care Provider [phone] Encounter Details Date Type Department Care Team Description 06/23/2017 Night Triage Doc Medical Records [address] [place] [address] Abstract, Provider Social History Tobacco Use Types [...] on filedocumented in this encounter Care Teams Metal Buggy Operator Relationship Specialty Start Date End Date Marilynn Hodges MD [address] [place] [address] PCP - General Internal Medicine 12/28/14 documented as of this encounter
--- OUTSIDE RECORDS SUMMARY | 2025-06-23 12:41 | XMS_ITS | Encounter Summary ---
Author Organization [facility] Address [address] [place] [address] Care Team Providers Care Shirt Folder Name Role Phone Marilynn Hodges MD Primary Care Provider [phone] Encounter Details Date Type Department Care Team Description 12/05/2023 Service Consultant Report Medical Records [address] [place] [address] [place] [address] [address] [place] [address] Social History Tobacco Use Types Packs/Day Years [...] on filedocumented in this encounter Care Teams Shirt Folder Relationship Specialty Start Date End Date Marilynn Hodges MD [address] [place] [address] PCP - General Internal Medicine 12/28/14 documented as of this encounter
--- OUTSIDE RECORDS SUMMARY | 2025-06-23 12:41 | XMS_ITS | Encounter Summary ---
Author Organization [facility] Address [address] [place] [address] Care Team Providers Care Steamer Gum Candy Name Role Phone Marilynn Hodges MD Primary Care Provider [phone] Encounter Details Date Type Department Care Team Description 01/30/2018 Energy Trading Analyst Report Medical Records [address] [place], [place] [id number] [place] [address] Social History Tobacco Use Types Packs/Day Years [...] on filedocumented in this encounter Care Teams Steamer Gum Candy Relationship Specialty Start Date End Date Marilynn Hodges MD [address] [place] [address] PCP - General Internal Medicine 12/28/14 documented as of this encounter
--- OUTSIDE RECORDS SUMMARY | 2025-06-23 12:41 | XMS_ITS | Clinical Summary ---
Author Organization [facility] Address [address] [place] [address] Care Team Providers Care Bank Vault Custodian Name Role Phone Marilynn Hodges MD Primary Care Provider [phone] Allergies Active Allergy Reactions Severity Noted Date Comments Basil Oil Medium 04/09/2013 Sesitivity to migrain MENDOSA Blue Dyes High 04/09/2013 Sensitivity to migrain MENDOSA Indigo carmine Chlorella Medium 04/09/2013 Fruit (Generic) Medium 04/09/2013 Banana, gm, pear, orange, coconut Latex Rash/Dermatitis 10/20/2009 Nuts Medium 04/09/2013 Sensitivity to migrain MENDOSA Medications Medication Sig Dispensed Refills Start Date End Date Status ALBUTEROL SULFATE (PROAIR HFA) 108 (90 BASE) MCG/ACT Aero Soln Inhale 2 Puffs into the lungs 4 times daily as needed for Cough or Wheezing. 1 Inhaler 5 07/16/2016 Active duloxetine (CYMBALTA) 30 MG capsule Take 1 capsule by mouth daily for 360 days. 30 capsule 2 01/09/2021 Active prazosin (MINIPRESS) 1 MG capsule Take 1 capsule by mouth at bedtime for 360 days. To take with 2 mg capsule for total of 3 mg nightly 30 capsule 5 05/18/2021 Active prazosin (MINIPRESS) 2 MG capsule Take 1 capsule by mouth at bedtime for 360 days. 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 Overview: LACTOSE INTOL-LACTAID MILK Asthma 04/21/2006 Overweight 04/21/2006 Erythromelalgia Resolved Problems Problem Noted Date Resolved Date Routine infant or child health check 10/24/2005 02/01/2006 Immunizations Name Administration Dates Next Due DTaP 10/12/2001, 8,03/07/1997, 997,1996 HIB 12/27/1997, 7,01/03/1997, 997 HPV (Gardasil) 03/18/2008,11/17/2007,09/16/2007 Hepatitis B-3 Dose (<19yrs) 06/18/1997, 7,1996 Influenza (> 6 Months) 07/08/2016,2008,06/06/2007, 006,06/20/2005 Influenza H1N1 Pandemic Flu Vaccine 08/21/2009 MMR (Otkcazs-Jxqal-Wpjgpxx) 10/24/2000, 8 Apjarzu-Efofn-Aoetpjkl + 03/07/2016 Meningococcal (Menactra) 04/09/2013,09/16/2007 Kpfde-Hblvb-Txjqvcfq + 03/07/2015 PPD Negative Response(Internal) 03/09/2015,02/06,09/12/2004 PPD-RBMG 03/07/2015,02/04/2014,09/10/2004 Polio (IPV) 10/09/2001 Polio (OPV) 03/07/1997,01/03/1997,1996 Csagydq-Tsxec-Grslegkp + 03/07/2015 Tdap 09/16/2007 Varicella 03/29/2009,09/20/1997 Family History Medical History Relation Name Comments NE Maternal Grandfather D Arthritis Maternal Grandmother Diabetes Maternal Grandmother Arthritis Mother Cholesterol Level Mother Allergies Other 1 MAT SIDE Asthma Other 2 MAT SIDE Hypertension Other 3 HEART Other 4 PAT SIDE migraine Paternal Grandmother Relation Name Status Comments Father Alive 1969 - good Maternal Grandfather (Age 65) NE Maternal Grandmother Alive arthrit is Mother Alive 1970 - good Other 1 Other 2 Other 3 Other 4 Paternal Grandfather Alive Paternal Grandmother Alive lung CA Sister Alive -RITIKA Social History Tobacco Use Types Packs/Day Years Used Date Smoking Tobacco: Never Smokeless Tobacco: Never Comments:MOM OUTSIDE Alcohol Use Standard Drinks/Week Comments No 0 (1 standard drink = 0.6 oz pur e alcohol) Sex Assigned at Date Recorded Not on file Job Start Date Occupation Industry Not on file Not on file Not on file Last Filed Vital Signs Vital Sign Reading Time Taken Comments Blood Pressure 110/62 07/24/2021 9:13 AM EST Pulse 62 07/24/2021 9:13 AM EST Temperature 36.2 C (97.1 F) 06/18/2021 1:35 PM EDT Respiratory Rate 18 06/18/2021 1:35 PM EDT Oxygen Saturation 99% 06/18/2021 1:35 PM EDT Inhaled Oxygen Concentration - - Weight 74.8 kg (165 lb) 07/24/2021 9:13 AM EST Height 172.7 cm (5' 8 ) 07/24/2021 9:13 AM EST Body Mass Index 25.09 07/24/2021 9:13 AM EST Plan of Treatment Health Maintenance Due Date Last Done Comments Covid-19 Vaccine (#1) 03/04/1997 PNEUMOCOCCAL VACCINE FOR HIG H RISK PATIENTS (#1) 2015 CERVICAL CANCER SCREENING 2017 DTAP/TDAP/TD (7 - Td or Tdap) 09/16/2017, 10/12/2001, 03/06/1998, Additional history exists BASELINE HEALTH EXAM 18-39 03/07/2020 03/07/2015, CHOLESTEROL SCREENING 03/07/2020 03/07/2015, 013 BMI CHECK/ADVISE 08/25/2024 11/30/2020, , 03/07/2015, Additional history exists INFLUENZA (#1) 2025 07/08/2016, 09/2008, 06/06/2007, Additional history exists Care Teams Bank Vault Custodian Relationship Specialty Start Date End Date Marilynn Hodges MD [address] [place] [address] PCP - General Internal Medicine 12/28/14
--- OUTSIDE RECORDS SUMMARY | 2025-06-23 12:42 | XMS_ITS | Encounter Summary ---
Author Organization [facility] Address [address] [place] [address] Care Team Providers Care Topology Professor Name Role Phone Marilynn Hodges MD Primary Care Provider [phone] Encounter Details Date Type Department Care Team Description 09/30/2016 Release of Information Medical Records [address] [place] [address] Abstract, Provider Social History Tobacco Use Types [...] on filedocumented in this encounter Care Teams Topology Professor Relationship Specialty Start Date End Date Marilynn Hodges MD [address] [place] [address] PCP - General Internal Medicine 12/28/14 documented as of this encounter
--- OUTSIDE RECORDS SUMMARY | 2025-06-23 12:42 | XMS_ITS | Encounter Summary ---
Author Organization [facility] Address [address] [place] [address] Care Team Providers Care Bleach Mixer Name Role Phone Pcp, No Primary Care Provider Unavailabl e Encounter Details Date Type Department Care Team (Late st Contact Info) Description 08/11/2019 Scanned Document [address] [id number] Provider, Sohail, [address] [place] [address] Social History Tobacco Use Types Packs/Day Years [...] on file Sexual Orientation Not on file documented as of this encounter Plan of Treatment Not on file documented as of this encounter Visit Diagnoses Not on filedocumented in this encounter Care Teams Bleach Mixer Relationship Specialty Start Date End Date Pcp, No PCP - General General Medicine 07/20/19 documented as of this encounter
--- OUTSIDE RECORDS SUMMARY | 2025-06-23 12:42 | XMS_ITS | Encounter Summary ---
Author Organization [facility] Address [address] [place] [address] Care Team Providers Care Wireline Supervisor Name Role Phone Jael Weller APRN Primary Care Provider + Pcp, No Primary Care Provider Unavailabl e Encounter Details Date Type Department Care Team (Late st Contact Info) Description 08/26/2018 Scanned Document [address] [phone] Provider, MD Sohail [address] [place], [place] [id number] Social History Tobacco Use Types Packs/Day Years [...] on filedocumented in this encounter Care Teams Wireline Supervisor Relationship Specialty Start Date End Date Jael Weller APRN PCP - General Family Medicine 08/06/18 07/19/19 Pcp, No PCP - General General Medicine 07/20/19 documented as of this encounter
--- OUTSIDE RECORDS SUMMARY | 2025-06-23 12:42 | XMS_ITS | Clinical Summary ---
Author Organization [facility] Address [address] [place] [address] Care Team Providers Care Printer Repair Technician Name Role Phone Pcp, No Primary Care [...] (1 of 3 - 19+ 3-dose series) 08/25 Pneumococcal Vaccine: Pediat jarred (0-5 Years) and At-Risk Patients (6 to 49 Years) (1 of 2 - PCV) 2015 Pap Smear (Ages 21-65) 2017 Influenza Vaccine 03/25/2025 COVID-19 Vaccine ( - season) 2025 HPV Vaccines (No Doses Required) Completed Insurance * Guarantor: Shakila Galvan Account Type Relation to Patient Date of Phone Billing Address Personal/Family Self 1995 [address] [place] [address] [facility] [employer] Member Subscriber Plan / Payer (Ef fective 2008-Present) Name:Shakila Galvan Relation to Subscriber:Self Name:Shakila Galvan Payer ID:Not on file Type:Not on file Address: [address] [place] [facility] [place] / Payer (Ef fective 2017-Present) Name:Shkaila Galvan Relation to Subscriber:Child Name:JAEL LANDIN Date of :1971 (Home) Address: [address] [place] [address] Payer ID:[id number] (NAIC) Type:Not on file Address: [address] [place] [address] Care Teams Printer Repair Technician Relationship Specialty Start Date End Date Pcp, No PCP - General General Medicine 07/20/19
--- OUTSIDE RECORDS SUMMARY | 2025-06-23 12:42 | XMS_ITS | Encounter Summary ---
Author Organization [facility] Address [address] [place] [address] Care Team Providers Care Budget Manager Name Role Phone Marilynn Hodges MD Primary Care Provider [phone] [phone] Encounter Details Date Type Department Care Team Description 10/21/2016 Lead Java Software Engineer Report Medical Records [address] [place] [address] Consuelo Harper Social History Tobacco Use Types [...] on filedocumented in this encounter Care Teams Budget Manager Relationship Specialty Start Date End Date Marilynn Hodges MD [address] [place] [address] PCP - General Internal Medicine 12/28/14 documented as of this encounter
--- OUTSIDE RECORDS SUMMARY | 2025-06-23 12:42 | XMS_ITS | Encounter Summary ---
Author Organization [facility] Address [address] [place] [address] Care Team Providers Care Chef De Cuisine Name Role Phone Jael Weller APRN Primary Care Provider + Pcp, No Primary Care Provider Unavailabl e Encounter Details Date Type Department Care Team (Late st Contact Info) Description 11/18/2018 Scanned Document [address] [phone] Provider, MD Sohail [address] [place], [place] [id number] Social History Tobacco Use Types Packs/Day Years [...] on filedocumented in this encounter Care Teams Chef De Cuisine Relationship Specialty Start Date End Date Jael Weller APRN PCP - General Family Medicine 08/06/18 07/19/19 Pcp, No PCP - General General Medicine 07/20/19 documented as of this encounter
--- OUTSIDE RECORDS SUMMARY | 2025-06-23 12:42 | XMS_ITS | Encounter Summary ---
Author Organization [facility] Address [address] [place] [address] Care Team Providers Care Stator Winder Name Role Phone Jael Weller APRN Primary Care Provider + Pcp, No Primary Care Provider Unavailabl e Encounter Details Date Type Department Care Team (Late st Contact Info) Description 08/19/2018 Scanned Document [address] [phone] Provider, MD Sohail [address] [place], [place] [phone] Social History Tobacco Use Types Packs/Day Years [...] on filedocumented in this encounter Care Teams Stator Winder Relationship Specialty Start Date End Date Jael Weller APRN PCP - General Family Medicine 08/06/18 07/19/19 Pcp, No PCP - General General Medicine 07/20/19 documented as of this encounter
--- OUTSIDE RECORDS SUMMARY | 2025-06-23 12:42 | XMS_ITS | Encounter Summary ---
Author Organization [facility] Address [address] [place] [address] Care Team Providers Care Kelp Cutter Name Role Phone Marilynn Hodges MD Primary Care Provider [phone] [phone] Encounter Details Date Type Department Care Team Description 06/25/2018 It Intern Report Medical Records [address] [place], [place] [address] [place] [address] Social History Tobacco Use Types Packs/Day Years [...] on filedocumented in this encounter Care Teams Kelp Cutter Relationship Specialty Start Date End Date Marilynn Hodges MD [address] [place] [address] PCP - General Internal Medicine 12/28/14 documented as of this encounter
--- OUTSIDE RECORDS SUMMARY | 2025-06-23 12:42 | XMS_ITS | Encounter Summary ---
Author Organization [facility] Address [address] [place] [address] Care Team Providers Care Technician Name Role Phone Marilynn Hodges MD Primary Care Provider +1 [phone] Encounter Details Date Type Department Care Team Description 07/01/2018 Medical Records Manager Report Medical Records [address] [place] [address] Anna Boyd Social History Tobacco Use Types [...] on filedocumented in this encounter Care Teams Technician Relationship Specialty Start Date End Date Marilynn Hodges MD [address] [place] [address] PCP - General Internal Medicine 12/28/14 documented as of this encounter
--- OUTSIDE RECORDS SUMMARY | 2025-06-23 12:42 | XMS_ITS | Encounter Summary ---
Author Organization [facility] Address [address] [place] [address] Care Team Providers Care Manager Of Loss Prevention Operations Name Role Phone Marilynn Hodges MD Primary Care Provider [phone] [phone] Encounter Details Date Type Department Care Team Description 03/05/2018 Chimney Mechanic Report Medical Records [address] [place], [place] [address] [place] [address] Social History Tobacco Use Types Packs/Day Years [...] on filedocumented in this encounter Care Teams Manager Of Loss Prevention Operations Relationship Specialty Start Date End Date Marilynn Hodges MD [address] [place] [address] PCP - General Internal Medicine 12/28/14 documented as of this encounter
--- OUTSIDE RECORDS SUMMARY | 2025-06-23 12:42 | XMS_ITS | Encounter Summary ---
Author Organization [facility] Address [address] [place] [address] Care Team Providers Care Sr. Operations Manager Name Role Phone Marilynn Hodges MD Primary Care Provider [phone] [phone] Reason for Referral * Non JOSÉ LUIS (Routine) - Authorized/Booked Specialty Diagnoses / Procedures Referred By Contdanae t Referred To Contact Dermatology Procedures REFERRAL TO DERMATOLOGY Marilynn Hodges MD [address] [place], [place] Tyrell Pathak MD [address] [place] [address] Referral ID Status Reason Start Date Expiration Date V isits Requested Visits Authorized [id number] Authorized/ Booked 04/11/2020 04/11/2021 12 12 Reason for Visit * Reason Onset Date Comments Registered Occupational Therapist Feedback 04/11/2020 Derm Encounter Details Date Type Department Care Team Description 04/11/2020 Telephone Dermatology - [place] [address] [place] [address] Marilynn Hodges MD [address] [place], [place] Registered Occupational Therapist Feedback (Derm) Social History Tobacco Use Types [...] referral needs to start: Harleen Hodges Payor: JABIER/Daleeli FFS / Plan: HMO $30 BOWMAN [id number] / Product Type: HMO PRE-PAID documented in this encounter Plan of Treatment Not on file documented as of this encounter Visit Diagnoses Not on filedocumented in this encounter Care Teams Sr. Operations Manager Relationship Specialty Start Date End Date Marilynn Hodges MD [facility] [place] [address] PCP - General Internal Medicine 12/28/14 documented as of this encounter
--- OUTSIDE RECORDS SUMMARY | 2025-06-23 12:43 | XMS_ITS | Encounter Summary ---
Author Organization [facility] Address [address] [place] [address] Care Team Providers Care Shift Coordinator Name Role Phone Rubina Mosquera MD Primary Care Provider Unavaila Roxi Moseley MD Primary Care Prov ider Mary Baeza MD Primary Care Provider Glo Hodges Ch MD Primary Care Provider [phone] [phone] Encounter Details Date Type Department Care Team Description 06/18/2012 Vending Enterprises Supervisor Report Medical Records [address] [place] [address] Davonte Hallman MD Social History Tobacco Use [...] on filedocumented in this encounter Care Teams Shift Coordinator Relationship Specialty Start Date End Date Rubina Mosquera MD PCP - General 12/17/1997 09/24/12 Roxi Radford MD [address] [place] [address] PCP - General Pediatrics 09/25/12 08/02/14 Mary Baeza MD [address] [place] [address] PCP - General Pediatrics 08/03/14 12/27/14 Marilynn Hodges MD [address] [place] [address] PCP - General Internal Medicine 12/28/14 documented as of this encounter
--- OUTSIDE RECORDS SUMMARY | 2025-06-23 12:43 | XMS_ITS | Encounter Summary ---
Author Organization [facility] Address [address] [place] [address] Care Team Providers Care Photographer Helper Name Role Phone Marilynn Hodges MD Primary Care Provider [phone] Reason for Visit * Reason Onset Date Comments Acid Blower Feedback 06/22/2021 CORTEZ SERNA Encounter Details Date Type Department Care Team Description 06/22/2021 Telephone Adult Medicine - [place] [address] [place] [address] Marilynn Hodges MD [address] [place] [address] Acid Blower Feedback (CORTEZ SERNA) Social History Tobacco Use [...] Arielle Gómez - 06/22/2021 9:37 AM EDT [facility] Specialty Referral Status [ Save Response to Batch ] Request: OtphwnWP=[id number] [id number] [facility] Trace #: [id number] Patient: SHAKILA ESPINOSA Subscriber: JAEL LANDIN Submitter : SCOT GAR Submitter Type: Provider : 1995 Referral (#[id number]) Specialty Care Review Type: Initial Certification Status : Certified in total Service Type : Medical Care Place Of Service : Office Visits : 6 Service Date : 06/21/2021-06/21/2022 Service Providers Provider Name ID Provider Type Specialty documented in this encounter Plan of Treatment Not on file documented as of this encounter Visit Diagnoses Not on filedocumented in this encounter Care Teams Photographer Helper Relationship Specialty Start Date End Date Marilynn Hodges MD [address] [place] [address] PCP - General Internal Medicine 12/28/14 documented as of this encounter
--- OUTSIDE RECORDS SUMMARY | 2025-06-23 12:43 | XMS_ITS | Encounter Summary ---
Author Organization [facility] Address [address] [place] [address] Care Team Providers Care Recycling Technician Name Role Phone Rubina Mosquera MD Primary Care Provider Roxi Gonzalez MD Primary Care Prov ider Mary Baeza MD Primary Care Provider Glo Hodges Ch MD Primary Care Provider [phone] Encounter Details Date Type Department Care Team Description 08/05/2012 Gi Physician Report Medical Records [address] [place], [place] [address] [address] [place] [address] Social History Tobacco Use Types Packs/Day Years [...] on filedocumented in this encounter Care Teams Recycling Technician Relationship Specialty Start Date End Date Rubina Mosquera MD PCP - General 12/17/1997 09/24/12 Roxi Radford, MD [address] [place] [address] PCP - General Pediatrics 09/25/12 08/02/14 Mary Baeza MD [address] [place] [address] PCP - General Pediatrics 08/03/14 12/27/14 Marilynn Hodges MD [address] [place] [address] PCP - General Internal Medicine 12/28/14 documented as of this encounter
--- OUTSIDE RECORDS SUMMARY | 2025-06-23 12:43 | XMS_ITS | Encounter Summary ---
Author Organization [facility] Address [address] [place] [address] Care Team Providers Care Clerk Of Court Name Role Phone Roxi Radford MD Primary Care Prov ider Mary Baeza MD Primary Care Provider Glo Hodges Ch MD Primary Care Provider [phone] [phone] Encounter Details Date Type Department Care Team Description 10/09/2012 Orders Only Pediatrics - [place] [address] [place] [address] Roxi Radford MD [address] [place] [address] Vitamin D insufficiency (Primary Dx) Social History Tobacco Use Types [...] as of this encounter Visit Diagnoses Diagnosis Vitamin D insufficiency- Primary Unspecified vitamin D deficiency documented in this encounter Care Teams Clerk Of Court Relationship Specialty Start Date End Date Roxi Radford MD [address] [place] [address] PCP - General Pediatrics 09/25/12 08/02/14 Mary Baeza MD [address] [place] [address] PCP - General Pediatrics 08/03/14 12/27/14 Marilynn Hodges MD [address] [place] [address] PCP - General Internal Medicine 12/28/14 documented as of this encounter
--- OUTSIDE RECORDS SUMMARY | 2025-06-23 12:43 | XMS_ITS | Encounter Summary ---
Author Organization [facility] Address [address] [place] [address] Care Team Providers Care Grinder Set Up Operator Surface Name Role Phone Rubina Mosquera MD Primary Care Provider Roxi Gonzalez MD Primary Care Prov ider Mary Baeza MD Primary Care Provider Glo Hodges Ch MD Primary Care Provider [phone] Reason for Visit * Reason Onset Date Comments REFERRAL 06/15/[address] Mosquera Encounter Details Date Type Department Care Team Description 06/15/2012 Telephone Pediatrics - [address] [address] Rubina Mosquera MD REFERRAL (for Dr. Mosquera) [...] call herpcp to get a referral to [facility] for physical therapy for migraines and the carrying of her book bag to see if there is any relation. How long has patient had these symptoms?: n/a PCP: Rubina Mosquera MD Payor: Pinchd Plan: PPO $25 Slicethepie Product Type: PPO [id number] documented in this encounter Plan of Treatment Not on file documented as of this encounter Visit Diagnoses Not on filedocumented in this encounter Care Teams Grinder Set Up Operator Surface Relationship Specialty Start Date End Date Rubina Mosquera MD PCP - General 12/17/1997 09/24/12 Roxi Radford MD [address] [place] [address] PCP - General Pediatrics 09/25/12 08/02/14 Mary Bazea MD [address] [place] [address] PCP - General Pediatrics 08/03/14 12/27/14 Marilynn Hodges MD [address] [place] [address] PCP - General Internal Medicine 12/28/14 documented as of this encounter
--- OUTSIDE RECORDS SUMMARY | 2025-06-23 12:43 | XMS_ITS | Encounter Summary ---
Author Organization [facility] Address [address] [place] [address] Care Team Providers Care Flow Nurse Name Role Phone Rubina Mosquera MD Primary Care Provider Unavaila Roxi Moseley MD Primary Care Prov ider Mary Baeza MD Primary Care Provider Glo Hodges Ch MD Primary Care Provider [phone] Encounter Details Date Type Department Care Team Description 07/15/2011 Refill OBGYN - [place] [address] [place] [address] Rose Barr MD Social History Tobacco Use Types [...] on filedocumented in this encounter Care Teams Flow Nurse Relationship Specialty Start Date End Date Rubina Mosquera MD PCP - General 12/17/1997 09/24/12 Roxi Radford MD [address] [place] [address] PCP - General Pediatrics 09/25/12 08/02/14 Mary Baeza MD [address] [place] [address] PCP - General Pediatrics 08/03/14 12/27/14 Marilynn Hodges MD [address] [place] [address] PCP - General Internal Medicine 12/28/14 documented as of this encounter
--- OUTSIDE RECORDS SUMMARY | 2025-06-23 12:43 | XMS_ITS | Encounter Summary ---
Author Organization [facility] Address [address] [place] [address] Care Team Providers Care Pipe Testing Technician Name Role Phone Rubina Mosquera MD Primary Care Provider Unavaila Roxi Moseley MD Primary Care Prov ider Mary Baeza MD Primary Care Provider Glo Hodges Ch MD Primary Care Provider [phone] [phone] Encounter Details Date Type Department Care Team Description 01/13/2012 Cement Tile Maker Report Medical Records [address] [place] [address] Davonte Hallman MD Social History Tobacco Use [...] on filedocumented in this encounter Care Teams Pipe Testing Technician Relationship Specialty Start Date End Date Rubina Mosquera MD PCP - General 12/17/1997 09/24/12 Roxi Radford MD [address] [place] [address] PCP - General Pediatrics 09/25/12 08/02/14 Mary Baeza MD [address] [place] [address] PCP - General Pediatrics 08/03/14 12/27/14 Marilynn Hodges MD [address] [place] [address] PCP - General Internal Medicine 12/28/14 documented as of this encounter
--- OUTSIDE RECORDS SUMMARY | 2025-06-23 12:43 | XMS_ITS | Encounter Summary ---
Author Organization [facility] Address [address] [place] [address] Care Team Providers Care Sleep Scientist Name Role Phone Roxi Radford MD Primary Care Prov ider Mary Baeza MD Primary Care Provider Glo bennett Hodges Ch MD Primary Care Provider [phone] [phone] Encounter Details Date Type Department Care Team Description 10/19/2012 Tufter Operator Report Medical Records [address] [place] [address] Davonte Hallman MD Social History Tobacco Use [...] on filedocumented in this encounter Care Teams Sleep Scientist Relationship Specialty Start Date End Date Roxi Radford MD [address] [place] [address] PCP - General Pediatrics 09/25/12 08/02/14 Mary Baeza MD [address] [place] [address] PCP - General Pediatrics 08/03/14 12/27/14 Marilynn Hodges MD [address] [place] [address] PCP - General Internal Medicine 12/28/14 documented as of this encounter
--- OUTSIDE RECORDS SUMMARY | 2025-06-23 12:43 | XMS_ITS | Encounter Summary ---
Author Organization [facility] Address [address] [place] [address] Care Team Providers Care Materials Management Manager Name Role Phone Marilynn Hodges MD Primary Care Provider [phone] Encounter Details Date Type Department Care Team Description 05/12/2015 Night Triage Doc Medical Records [address] [place] [address] Abstract, Provider Social History Tobacco Use Types [...] on filedocumented in this encounter Care Teams Materials Management Manager Relationship Specialty Start Date End Date Marilynn Hodges MD [address] [place] [address] PCP - General Internal Medicine 12/28/14 documented as of this encounter
--- OUTSIDE RECORDS SUMMARY | 2025-06-23 12:44 | XMS_ITS | Clinical Summary ---
Author Organization [address] Address [address] [place] [address] Phone Care Team Providers Care Vice President Consulting Services Name Role Phone Referring, No Primary Care [...] history exists Covid-19 vaccine series ( - 2024- season) 2025 RSV Immunization (1 - 1-dose 75+ series) 2071 Meningococcal Vaccine Completed 04/09/2013, 008 Meningococcal B Vaccine Aged Out No l onger eligible based on patient's age to complete this topic Pneumococcal Vaccine (2 - 49 years) Aged Out No longer eligible based on patient's age to complete this topic Insurance MineBS BCBS [facility] Care Teams Vice President Consulting Services Relationship Specialty Start Date End Date Referring, No PCP - General 05/02/18
--- OUTSIDE RECORDS SUMMARY | 2025-06-23 12:44 | XMS_ITS | Encounter Summary ---
Author Organization [facility] Address [address] [place] [address] Care Team Providers Care Sub Assembly Team Worker Name Role Phone Rubina Mosquera MD Primary Care Provider Roxi Gonzalez MD Primary Care Prov ider Mary Baeza MD Primary Care Provider Glo Hodges Ch MD Primary Care Provider [phone] [phone] Encounter Details Date Type Department Care Team Description 02/24/2005 Orders Only Pediatrics - [address] [address] Jefferson Garcia ACUTE PHARYNGITIS (Primary Dx) Social [...] Primary documented in this encounter Care Teams Sub Assembly Team Worker Relationship Specialty Start Date End Date Rubina Mosquera MD PCP - General 12/17/1997 09/24/12 Roxi Radford MD [address] [place] [address] PCP - General Pediatrics 09/25/12 08/02/14 Mary Baeza MD [address] [place] [address] PCP - General Pediatrics 08/03/14 12/27/14 Marilynn Hodges MD [address] [place] [address] PCP - General Internal Medicine 12/28/14 documented as of this encounter
--- OUTSIDE RECORDS SUMMARY | 2025-06-23 12:44 | XMS_ITS | Patient Health Record ---
[facility] Address [address] [facility] [place] [address] Care Team Providers Care Sleep Tech Name Role Phone Annie Jane MD Primary Care Provider Miles Blair Unavailable [phone] Harleen Whitehead MD Unavailable Un available Allergies Allergen (clinical drug ingredient) Drug/Non Drug Allergy documented on EMR Reaction Allergy Type Onset Date Status basil oil Basil Oil (uncoded) Sensitivity to migraines Allergy Active pear flavor (uncoded) Unknown Allergy Active Banana Flavor Unknown Drug Allergy Act hakeem Coconut Flavor Unknown Drug Allergy Ac tive Dye CORRECTION Blue 1 Unknown Drug Allergy Ac tive Natalia Flavor Unknown Drug Allergy Acti ve orange allergenic extract [place] (Diagnostic) Unknown Drug Allergy Active Latex Latex [...] W/U Status Risk Notes Problem Ingrowing nail (602168330) Ingrowing nail (L60.0) Active confirmed Plan Of Treatment Pending Test Test Name Order Date 20921- Debride <25 sq cm 06/08/2020 16889 I&D ABSCESS- SIMPLE,SINGLE 021 75626 I&D ABSCESS- SIMPLE,SINGLE 020 95845- I&D ABSCESS-COMPLICATED,MULTI 64198- I&D ABSCESS-COMPLICATED,MULTI Insurance Providers Payer Name Payer Address Payer Phone Subscriber Number Group Number Insured Name Patient Relationship to Insured Coverage Start Date Coverage End Date [facility] [address] [place] [address] [phone] [id number] Jael Brower Child - Insured does not have Financial Responsibility (includes legally adopted child) Medical (General) History Medical History History ICD Code Anxiety asthma Depression Fibromyalgia Lactose intolerance Migraines PTSD Suicidal Ideations spinal injury Surgical History Surgery Date(Month/Year) Hospitalization History Reason Date(Month/Year) Urgent Care- cellulitis 10/2020
--- OUTSIDE RECORDS SUMMARY | 2025-06-23 12:44 | XMS_ITS | Encounter Summary ---
Author Organization [facility] Address [address] [place] [address] Care Team Providers Care Climbing Guide Name Role Phone Rubina Mosquera MD Primary Care Provider Roxi Gonzalez MD Primary Care Prov ider Mary Baeza MD Primary Care Provider Glo Hodges Ch MD Primary Care Provider [phone] [phone] Reason for Visit * Reason Comments medication problems Encounter Details Date Type Department Care Team Description 07/28/2003 Telephone [facility] - [address] [phone] Haroldo Brewster MD medication problems Social History [...] - 07/28/2003 8:42 AM ESTCALL RECEIVED. Contact: [phone] mom would like to speak with dr brewster about putting child on singular tablets for her asthma. documented in this encounter Plan of Treatment Not on file documented as of this encounter Visit Diagnoses Not on filedocumented in this encounter Care Teams Climbing Guide Relationship Specialty Start Date End Date Rubina Mosquera MD PCP - General 12/17/1997 09/24/12 Roxi Radford MD [address] [place] [address] PCP - General Pediatrics 09/25/12 08/02/14 Mary Baeza MD [address] [place] [address] PCP - General Pediatrics 08/03/14 12/27/14 Marilynn Hodges MD [address] [place] [address] PCP - General Internal Medicine 12/28/14 documented as of this encounter
--- OUTSIDE RECORDS SUMMARY | 2025-06-23 12:44 | XMS_ITS | Encounter Summary ---
Author Organization [facility] Address [address] [place] [address] Care Team Providers Care Sportspersons Name Role Phone Rubina Mosquera MD Primary Care Provider Roxi Gonzalez MD Primary Care Prov ider Mary Baeza MD Primary Care Provider Glo Hodges Ch MD Primary Care Provider [phone] [phone] Encounter Details Date Type Department Care Team Description 05/14/2005 Orders Only Medicine/Pediatrics - [address] [address] Haroldo Mccauley MD ACUTE PHARYNGITIS (Primary Dx) [...] HEMOLYTIC STREPTOCOCCUS GROUP A Testing Performed at [facility], [address] [place] [address] [facility] 05/14/2005 9:50 AM EDT 05/14/2005 9:59 AM EDT Haroldo Mccauley MD LAB [facility] documented in this encounter Visit Diagnoses Diagnosis Acute pharyngitis- Primary documented in this encounter Care Teams Sportspersons Relationship Specialty Start Date End Date Rubina Mosquera MD PCP - General 12/17/1997 09/24/12 Roxi Radford MD [address] [place] [address] PCP - General Pediatrics 09/25/12 08/02/14 Mary Baeza MD [address] [place] [address] PCP - General Pediatrics 08/03/14 12/27/14 Marilynn Hodges MD [address] [place] [address] PCP - General Internal Medicine 12/28/14 documented as of this encounter
--- OUTSIDE RECORDS SUMMARY | 2025-06-23 12:44 | XMS_ITS | Patient Health Record ---
Author Organization [facility] Address [address] [place] [id number] Care Team Providers Care [employer]ing Machine Maintainer Name Role Phone MIKE REAVES [phone] Allergies Allergen (clinical drug ingredient) Drug/Non Drug Allergy documented on EMR Reaction Allergy Type Onset Date Status Latex Latex RASH/ IRRITATION Allergy Act hakeem Results Component Value Reference Range Notes Testosterone-[id number] Reviewed date:11/15/2024 04:51:58 PM Interpretation: Performing Lab:[facility], [place], Phone - [phone], Director - Diana Notes/Report: Testosterone 66 13-71 ng/dL Luteinizing Hormone(LH)-0042 83 Reviewed date:11/15/2024 04:51:50 PM Interpretation: Performing Lab:[facility], [place] [employer], Phone - [phone], - Diana Notes/Report: LH 6.7 Adult Female Range Follicular phase 2.4 - 12.6 Ovulation phase 14.0 - 95.6 Luteal phase 1.0 - 11.4 Postmenopausal 7.7 - 58.5 FSH-[id number] Reviewed date:11/15/2024 04:51:41 PM Interpretation: Performing Lab:[facility], [place] [employer], Phone - [phone], Director - Diana Notes/Report: FSH 6.3 Adult Female Range Follicular phase 3.5 - 12.5 Ovulation phase 4.7 - 21.5 Luteal phase 1.7 - 7.7 Postmenopausal 25.8 - 134.8 Progesterone-[id number] Reviewed date:11/01/2024 09:24:56 AM Interpretation: Performing Lab:[facility], Phone - [phone], Director Damien Ortiz Notes/Report: Progesterone 0.4 Follicular phase 0.1 - 0.9 Luteal phase 1.8 - 23.9 Ovulation phase 0.1 - 12.0 First trimester 11.0 - 44.3 Second trimester 25.4 - 83.3 Third trimester 58.7 - 214.0 Postmenopausal 0.0 - 0.1 Prolactin-768118 Reviewed date:11/15/2024 04:51:35 PM Interpretation: Performing Lab:[facility] [address] [place] [address], Phone - [phone], Director Damien Ortiz Notes/Report: Prolactin 17.2 4.8-33.4 ng/mL Estradiol-756330 Reviewed date:11/15/2024 04:51:30 PM Interpretation: Performing Lab:[facility] [address] [place] [address], Phone - [phone], Director Damien Ortiz Notes/Report: Estradiol 33.8 Adult Female Range Follicular phase 12.5 - 166.0 Ovulation phase 85.8 - 498.0 Luteal phase 43.8 - 211.0 Postmenopausal <6.0 - 54.7 1st trimester 215.0 - >4300.0 Emil ECLIA methodology TSH Rfx on Abnormal to Free [id number] Reviewed date:11/15/2024 04:51:21 PM Interpretation: Performing Lab:[facility] [address] [place] [address], Phone - [phone], Director Damien Ortiz Notes/Report: TSH 1.700 0.450-4.500 uIU/mL PDF Report Reviewed date:11/05/2024 10:27:16 AM Interpretation: Performing Lab:[facility] [address] [place] [address], Phone - [phone], Director Damien Ortiz Notes/Report: PDF Report Reviewed date:11/15/2024 04:53:06 PM Interpretation: Performing Lab:[facility] [place], Phone - [phone], Director Damien Early Notes/Report: Test(s) 552567-46-XK Progesterone LCMS was developed and its performance characteristics determined by [facility]. It has not been cleared or approved by the Food and Drug Administration. Written Authorization Reviewed date:11/05/2024 10:27:07 AM Interpretation: Performing Lab:[facility] [place], Phone - [phone], Director - Nneka Notes/Report: Test(s) 049442-38-JD Progesterone LCMS was developed and its performance characteristics determined by [facility]. It has not been cleared or approved by the Food and Drug Administration. Written Authorization Written Authorization Received. Authorization received from Original Requisition 11-01-2024 Logged by Moni Bhatia 17-OH Progesterone LCMS-0700 85 Reviewed date:11/15/2024 04:51:13 PM Interpretation: Performing Lab:[facility] [place], Phone - [phone], Director - Nneka Notes/Report: Test(s) 688741-33-OT Progesterone LCMS was developed and its performance characteristics determined by [employer]. It has not been cleared or approved by the Food and Drug Administration. 17-OH Progesterone LCMS 48 Adult Female Follicular 15 - 70 Luteal 35 - 290 Reason For Referral No Information Medications Medication [...] Status Risk Notes Problem Acute stress disorder (01342671) Other reactions to severe stress (F43.8) Active confirmed Problem Migraine with aura (5678525) Migraine with aura, not intractable, without status migrainosus (G43.109) Active confirmed Problem Uncomplicated asthma (disorder) (260698585) Unspecified asthma, uncomplicated (J45.909) Active confirmed Problem Hirsutism (122682317) Hirsutism (L68.0) Active confirmed Problem Irregular menstruation (25742894) Irregular menstruation, unspecified (N92.6) Active confirmed Vital Signs Temperature 97.1 degrees Fahrenheit 11/15/2024 Blood pressure diastolic 64 mm Hg 11/15/2024 Height 68 in 11/15/2024 Blood pressure systolic 116 mm Hg 11/15/2024 Weight 139 lbs 11/15/2024 BMI 21.13 kg/m2 11/15/2024 Encounters Encounter Location Date Provider Diagnosis [address] [address] 10/29/2024 MIKE REAVES [address] [address] 06/17/2025 MIKE REAVES Encounter for gynecological examination (general) (routine) without abnormal findings Z01.419 ; Encounter for screening for infections with a predominantly sexual mode of transmission Z11.3 and Hirsutism L68.[address] [address] 10/21/2024 MIKEChacha GUTIERREZREAVES Irregular menstruati on, unspecified N92.6 ; Hirsutism L68.0 and Pelvic Pain R10.[address] [address] 11/15/2024 MIKE REAVES Irregular menstruati on, unspecified N92.6 and Hirsutism L68.0 Assessments Encounter [...] 11/15/2024 Irregular menstruation, unspecified (ICD-10 - N92.6) 06/17/2025 Encounter for gynecological examination (general) (routine) without abnormal findings (ICD-10 - Z01.419) Discussed cervical cancer screening with cytology every 3 years as per ASCCP guidelines. Advised continued annual pelvic exams. Patient encouraged to increase her level of exercise. SBE technique encouraged/taugh t. Safe sexual practices and STI prevention discussed. 06/17/2025 Encounter for screening for infections with a predominantly sexual mode of transmission (ICD-10 - Z11.3) 10/21/2024 Pelvic Pain (ICD-10 - R10.2) Pelvic pain is associated with back pain. Will check u/s for evidence of polycystic ovaries, as well as ovarian cysts (which can cause pain). 06/17/2025 Hirsutism (ICD-10 - L68.0) 10/21/2024 Other 45 minutes were spent on [...] Name Order Date ULTRASOUND: PELVIC W/TRANSVAGINAL 2024 Testosterone-[id number] 10/21/2024 Prolactin-397537 10/21/2024 17-OH Progesterone [facility]-[id number] TSH reflex to [id number] 10/21/2024 FSH+LH+E2 10/21/2024 Insurance Providers Payer Name Payer Address Payer Phone Subscriber Number Group Number Insured Name Patient Relationship to Insured Coverage Start Date Coverage End Date [facility] [id number] [facility] [address] [place] [address] [phone] [id number] LENA ESPINOSA Self - patient is the insured Medical (General) History Medical History History ICD Code Other reactions to severe stress F43.8 Unspecified asthma, uncomplicated J45.90 9 Migraine with aura, not intractable, wit hout status migrainosus G43.109 Surgical History Surgery Date(Month/Year)
== END 2025-06-23 11:17 | disposition home or self-care (01) ==
LOC: HO.HNS 10:25
PROVIDERS: PCP Nurse Practitioner Family; Visit Provider Physician Assistant
DX: Z98.890 Other specified postprocedural states (principal)
CPT/HCPCS: 99024

== ENCOUNTER → 2025-06-23 10:25 | Outpatient (BNVA) | payer OTHER, SELFPAY | PROVIDERS: PCP Nurse Practitioner Family; Visit Provider Physician Assistant | DX: Z47.89 Encounter for other orthopedic aftercare (principal); Z98.890 Other specified postprocedural states | CPT/HCPCS: 99212 ==